=== PATIENT | female | born 1965 | race Hispanic/Latino ===

== ENCOUNTER 2017-02-08 12:06 | Day surgery (SDC) | payer MEDICARE, OTHER ==
[2017-02-05 12:10] VITALS: BMI 29.6
[2017-02-08 12:32] LABS: BASO # 0.03 K/mm3 (0.0-2.0); BASO % 0.5 % (0.0-3.0); EOS # 0.1 (0.0-0.7); EOS % 1.4 % (1.5-5.0); GRAN # 4.57 (1.4-6.5); HEMATOCRIT 42.6 % (36.0-48.0); LYMPH # 1.6 (1.2-3.4); LYMPH % 23.8 % (22.0-35.0); MEAN CELL VOLUME 92.4 fl (80.0-105.0); MEAN CORPUSCULAR HEMOGLOBIN 30.8 pg (25.0-35.0); MEAN CORPUSCULAR HGB CONC 33.3 g/dl (31.0-37.0); MEAN PLATELET VOLUME 10.6 fl (7.0-11.0); MONO # 0.3 (0.1-0.6); MONO % 4.3 % (1.0-6.0); RED CELL DISTRIBUTION WIDTH 14.9 % (11.5-14.5); WHITE BLOOD COUNT 6.5 10^3/ul (4.5-11.0)
[2017-02-08 12:43] VITALS: O2SAT 98
[2017-02-08 12:43] LABS: BLOOD UREA NITROGEN 11 mg/dL (7-21); CALCIUM 8.9 mg/dL (8.4-10.5); CARBON DIOXIDE 21 mmol/L (21-33); CHLORIDE 112 mmol/L (98-107); GFR AFRICAN-AMERICAN > 60; GLUCOSE,RANDOM 108 mg/dL (70-110); POTASSIUM 3.9 mmol/L (3.6-5.0); SODIUM 139 mmol/L (132-148)
[2017-02-08 12:51] LABS: INR 1.04 (0.93-1.08); PARTIAL THROMBOPLASTIN TIME 26.7 Seconds (25.1-36.5)
[2017-02-08] MEDS ORDERED: Midazolam 2 MG/2 ML VIAL ONE ×2 (14:53→15:25)
[2017-02-08] MEDS ORDERED: Oxycodone/Acetaminophen 5/325 mg Tab PO PRN (15:41)
[2017-02-08] MEDS ORDERED: Sodium Chloride 0.45% 1,000 ML IV SCH (15:45)
[2017-02-08 16:57] VITALS: BP 111/71; PULSE 62; RESP 20; TEMP 98
--- NOTE | 2017-02-08 19:34 | US ---
PROCEDURE: Ultrasound-guided right thyroid fine needle aspiration biopsy. CLINICAL HISTORY: Solitary complex 3 cm right thyroid nodule Evaluate for malignancy. PHYSICIAN(S): Moris Calle M.D. TECHNIQUE: The relative risks and indications for the procedure were explained to the patient and consent obtained. The patient was placed supine on the stretcher with the neck extended and preliminary sonography of the thyroid performed. This reveal a 3 cm complex cystic/ nodule in the right thyroid. The remainder of the thyroid parenchyma is homogeneous in echotexture. The neck was prepped and draped in the usual sterile fashion. Conscious sedation and monitoring were provided throughout the procedure by a nurse. 1% Xylocaine was used to anesthetize the skin and soft tissues at the access site. Three passes with a 22-gauge needle were performed under ultrasound guidance for fine needle aspiration of the 3 cm complex nodule in the right thyroid. The slides were reviewed by pathology and deemed adequate. The patient tolerated the procedure well. IMPRESSION: 1. Ultrasound guided fine needle aspiration of a 3- cm complexnodule in the right thyroid.
== END 2017-02-08 17:04 | disposition home or self-care (01) ==
LOC: SDS 12:06
PROVIDERS: ATTEND Radiology Vascular & Interventional Radiology
DX: E04.1 Nontoxic single thyroid nodule (principal); I10 Essential (primary) hypertension; J45.909 Unspecified asthma, uncomplicated; F17.200 Nicotine dependence, unspecified, uncomplicated
CPT/HCPCS: 10022; 36415; 80048; 84703; 85025; 85610; 85730; 88173; 88305; J2250; J2405; J3010; J7030

== ENCOUNTER 2017-12-01 11:27 | Inpatient (IN) | payer MEDICARE, OTHER ==
[2017-12-01] MEDS ORDERED: Sodium Chloride 0.9% 1,000 ML IV STA (11:51)
--- NOTE | 2017-12-01 11:58 | ED PDOC ---
Arrival/HPI - General Chief Complaint: GI Problem Time Seen by Provider: 12/01/17 11:32 Historian: Patient - History of Present Illness Narrative History of Present Illness (Text): 12/01/17 11:54 A 52 year old female, with no significant past medical history, presents to the emergency department with a complaint of 3-4 month duration history of nausea and vomiting every morning. The patient reports that she has experienced weight loss of about 40 lbs. She states that she was seen by her PMD for further evaluation and was advised to come into the emergency department to be admitted. The patient complaint of lightheadedness and dizziness. The patient denies any histry of travel or exposure. The patient is a smoker, non drinker, and marijuana smoker. The patient denies fevers, chills, headache, sore throat, cough, chest pain, shortness of breath, dyspnea on exertion, abdominal pain, diarrhea, neck/back pain, urinary/bowel changes or any other complaint. PMD: Dr. Lopez Time/Duration: Other (3- 4 months) Symptom Course: Unchanged Activities at Onset: Rest, Light Context: Home Past Medical History - Provider Review Nursing Documentation Reviewed: Yes - Infectious Disease Hx of Infectious Diseases: None - Tetanus Immunization Tetanus Immunization: Unknown - Cardiac Hx Cardiac Disorders: No - Pulmonary Hx Respiratory Disorders: Yes Hx Asthma: Yes - Neurological Hx Neurological Disorder: No - HEENT Hx HEENT Disorder: No - Renal Hx Renal Disorder: No - Endocrine/Metabolic Hx Endocrine Disorders: No - Hematological/Oncological Hx Blood Disorders: Yes Hx Anemia: Yes Hx Blood Transfusions: Yes - Integumentary Hx Dermatological Disorder: No - Musculoskeletal/Rheumatological Hx Musculoskeletal Disorders: Yes Hx Back Pain: Yes Other/Comment: DVT - Gastrointestinal Hx Gastrointestinal Disorders: Yes Hx Constipation: Yes - Genitourinary/Gynecological Hx Genitourinary Disorders: No - Psychiatric Hx Psychophysiologic Disorder: Yes Hx Depression: Yes Hx Substance Use: Yes (CANNABIS) - Surgical History Hx Section: Yes - Anesthesia Hx Anesthesia Reactions: No Hx Malignant Hyperthermia: No - Suicidal Assessment Feels Threatened In Home Enviroment: No Family/Social History - Physician Review Nursing Documentation Reviewed: Yes Family/Social History: No Known Family HX Smoking Status: Light Smoker < 10 Cigarettes Daily Hx Alcohol Use: Yes (SOCIALLY) Hx Substance Use: Yes (CANNABIS) Hx Substance Use Treatment: No Allergies/Home Meds Allergies/Adverse Reactions: Allergies No Known Allergies Allergy (Verified 12/01/17 11:31) Home Medications: Home Meds Medication Instructions Recorded Confirmed Gabapentin [Neurontin] 300 mg PO BID 02/05/17 12/01/17 Oxycodone HCl [Oxycontin] 30 mg PO BID 02/05/17 12/01/17 oxyCODONE [oxyCODONE Immediate 10 mg PO TID 12/01/17 12/01/17 Release Tab] Review of Systems - Physician Review All systems were reviewed & negative as marked: Yes - Review of Systems Constitutional: absent: Fevers ENT: absent: Sore Throat Respiratory: absent: SOB, Cough Cardiovascular: absent: Chest Pain, JERONIMO Gastrointestinal: Nausea, Vomiting. absent: Abdominal Pain, Diarrhea, Appetite Changes Genitourinary Female: absent: Urine Output Changes Musculoskeletal: absent: Back Pain, Neck Pain Neurological: Dizziness. absent: Headache Physical Exam Vital Signs Reviewed: Yes Vital Signs Temp Pulse Resp BP Pulse Ox 12/01/17 11:32 98.2 F 93 H 17 119/83 94 L Temperature: Afebrile Blood Pressure: Normal Pulse: Tachycardic Respiratory Rate: Normal Appearance: Positive for: Well-Appearing, Non-Toxic, Comfortable Pain Distress: None Mental Status: Positive for: Alert and Oriented X 3 - Systems Exam Head: Present: Atraumatic, Normocephalic Pupils: Present: PERRL Extroacular Muscles: Present: EOMI Conjunctiva: Present: Normal Mouth: Present: Moist Mucous Membranes Neck: Present: Normal Range of Motion Respiratory/Chest: Present: Clear to Auscultation, Good Air Exchange. No: Respiratory Distress, Accessory Muscle Use Cardiovascular: Present: Regular Rate and Rhythm, Normal S1, S2. No: Murmurs Abdomen: No: Tenderness, Distention, Peritoneal Signs Back: Present: Normal Inspection Upper Extremity: Present: Normal Inspection. No: Cyanosis, Edema Lower Extremity: Present: Normal Inspection. No: Edema Neurological: Present: GCS=15, CN II-XII Intact, Speech Normal Skin: Present: Warm, Dry, Normal Color. No: Rashes Psychiatric: Present: Alert, Oriented x 3, Normal Insight, Normal Concentration Medical Decision Making ED Course and Treatment: 12/01/17 11:59 Impression: A 52 year old female presents to the emergency department for further evaluation of 3-4 month duration nausea and vomiting, dizziness and lightheadedness. Plan: -- EKG -- Chest X-ray -- Labs -- Urinalysis -- Zofran and IV Fluids -- Reassess and disposition Prior Visits: Notes and results from previous visits were reviewed. Progress Notes: 12/01/17 13:56 Discussed with , who will admit and requests consult with and Paola. 12/01/17 13:58 EKG shows normal sinus rhythm rate approximately [address] or T-wave changes. - Lab Interpretations I have reviewed the lab results: Yes - EKG Interpretation Interpreted by ED Physician: Yes Type: 12 lead EKG - Medication Orders Current Medication Orders: Sodium Chloride (Sodium Chloride 0.9%) 1,000 mls @ 1,000 mls/hr IV .Q1H STA Stop: 12/01/17 12:50 Ondansetron HCl (Zofran Inj) 4 mg IVP STAT STA Stop: 12/01/17 11:52 - Scribe Statement The provider has reviewed the documentation as recorded by the Kellieibjames Styles Provider Scribe Attestation: All medical record entries made by the Scribe were at my direction and personally dictated by me. I have reviewed the chart and agree that the record accurately reflects my personal performance of the history, physical exam, medical decision making, and the department course for this patient. I have also personally directed, reviewed, and agree with the discharge instructions and disposition. Disposition/Present on Arrival - Present on Arrival Any Indicators Present on Arrival: No History of DVT/PE: No History of Uncontrolled Diabetes: No Urinary Catheter: No History of Decub. Ulcer: No History Surgical Site Infection Following: None - Disposition Have Diagnosis and Disposition been Completed?: Yes Diagnosis: Weight loss, Nausea and vomiting Disposition: HOSPITALIZED Disposition Time: 13:57 Patient Plan: Observation Patient Problems: Current Active Problems Problem Status Onset Nausea and vomiting Acute Weight loss Acute Condition: GOOD Forms: [facility] (Macedonian)
[2017-12-01 12:26] LABS: HCG,QUALITATIVE URINE NEGATIVE (NEGATIVE)
[2017-12-01 12:27] LABS: PH,URINE 6.5 (4.7-8.0); URINE APPEARANCE CLOUDY (CLEAR); URINE BILIRUBIN SMALL (NEGATIVE); URINE BLOOD TRACE-INTACT (NEGATIVE); URINE COLOR LIGHT BROWN (YELLOW); URINE GLUCOSE (UA) NEGATIVE (NEGATIVE); URINE LEUKOCYTE ESTERASE NEGATIVE Leu/uL (NEGATIVE); URINE PROTEIN 30 mg/dL (<30 mg/dL)
[2017-12-01 12:28] LABS: URINE BACTERIA LARGE (NEG); URINE EPITHELIAL CELLS MANY /hpf (0-5); URINE WBC 0 - 2 /hpf (0-6)
[2017-12-01 12:47] LABS: BASO # 0.06 K/mm3 (0.0-2.0); BASO % 0.7 % (0.0-3.0); EOS # 0.2 (0.0-0.7); EOS % 2.6 % (1.5-5.0); GRAN # 5.6 (1.4-6.5); GRAN % 63.9 % (50.0-68.0); HEMOGLOBIN 14.2 g/dL (12.0-16.0); LYMPH # 2.4 (1.2-3.4); LYMPH % 27.7 % (22.0-35.0); MEAN CORPUSCULAR HEMOGLOBIN 30.1 pg (25.0-35.0); MEAN CORPUSCULAR HGB CONC 33.4 g/dl (31.0-37.0); MEAN PLATELET VOLUME 10.2 fl (7.0-11.0); MONO # 0.5 (0.1-0.6); MONO % 5.1 % (1.0-6.0); RBC 4.72 10^6/uL (3.5-6.1); RED CELL DISTRIBUTION WIDTH 14.3 % (11.5-14.5); WHITE BLOOD COUNT 8.8 10^3/ul (4.5-11.0)
[2017-12-01 12:52] LABS: ALB/GLOB RATIO 1.4 (1.1-1.8); ALBUMIN 4.2 g/dL (3.0-4.8); ALT/SGPT 25 U/L (7-56); AST/SGOT 32 U/L (14-36); BLOOD UREA NITROGEN 13 mg/dL (7-21); CALCIUM 9.1 mg/dL (8.4-10.5); GFR NON-AFRICAN AMERICAN > 60; LIPASE 87 U/L (23-300)
[2017-12-01] MEDS: Sodium Chloride 0.9% 1,000 ML IV SCH (20:08)
[2017-12-01] MEDS ORDERED: Albuterol-Ipratrop 3 mg / 0.5 (3 ml) UD IH PRN (20:21)
[2017-12-01] MEDS ORDERED: oxyCODONE 10 mg ER Tab (oxyCONTIN) PO STA (20:31)
--- NOTE | 2017-12-01 22:10 | CON ---
DATE: 12/01/2017 PULMONARY CONSULTATION REFERRING PHYSICIAN: Dr. Lopez REASON FOR CONSULTATION: Chronic lung disease, recurrent nausea, vomiting, losing weight. HISTORY OF PRESENT ILLNESS: This is a 52-year-old female known to me for few years ago with history of major depression, insomnia, chronic lung disease, history of L2-L3 laminectomy and fusion end up with DVT, requiring anticoagulation. She has a migraine headache, usually use marijuana for it. Also opiate use because of neck and low back pain. Seen by Dr. Lopez, claims loss 30-40 pounds recently, gets nausea and vomiting right after eating and throws up. Presently lying in the bed comfortably. PAST MEDICAL HISTORY: As per history of present illness. ALLERGIES: NONE KNOWN. SOCIAL HISTORY: Active smoker. Denies any alcohol use. Also use marijuana. FAMILY HISTORY: No significant cardiopulmonary disease reported. MEDICATIONS: At present, she is on gabapentin 300 mg twice a day, Nicoderm patch daily, oxycodone 30 mg twice a day, Protonix 40 mg daily, IV fluid normal saline 100 mL/hour, Zofran p.r.n. basis. REVIEW OF SYSTEMS: History of migraine headache. No rhinitis. No postnasal drip. Short of breath, nausea and vomiting. No abdominal pain. No dysuria. No constipation. No leg pain or leg swelling. Has a chronic low back pain. Also has a cervical area pain. PHYSICAL EXAMINATION: VITAL SIGNS: Temperature is 98, heart rate 65, respiratory rate is 18, blood pressure 112/78, pulse ox 97% on room air. HEENT: Moist mucous membranes. No ulcer or thrush noted. NECK: Supple. No JVD. LUNGS: Have fair airflow with few rhonchi. HEART: S1 and S2. ABDOMEN: Soft, nontender, no organomegaly. EXTREMITIES: No edema. NEUROLOGIC: Awake and alert, follows simple commands. LABORATORY DATA: Shows hemoglobin 14.2, hematocrit 42.2, WBC 8.8, platelet is 176. Sodium 139, potassium 4.6, chloride 105, bicarbonate 26, BUN 12, creatinine 0.7, glucose 85, calcium is 9.1, total bili 0.3, AST 32, ALT 25, alk phos is 56, magnesium 1.8. Albumin is 4.2. Urinalysis shows wbc's 0-2. Beta hCG is negative. IMPRESSION AND PLAN: Recurrent nausea and vomiting with weight loss, chronic obstructive lung disease, history of migraine headache. He had a history of L2-L3 laminectomy with fusion in the remote past with chronic pain syndrome, opiate dependence, history of deep venous thrombosis postoperatively in 2012, chronic lung disease, active smoker, depression, history of insomnia. The patient is asked to stop smoking. May give her Nicoderm patch 7 mg. We will get CT of the abdomen and pelvis with IV and p.o. contrast. May also need esophagogram. We will add Reglan for a short period of time. Could have gastroparesis from opiates. The patient is asked to stop smoking. Gastric and deep venous thrombosis prophylaxis. Thank you and we will follow with you. Eliazar Castle MD
[2017-12-02 01:22] VITALS: BMI 27.3
--- NOTE | 2017-12-02 02:28 | HP ---
The patient was seen and examined on the bedside in the ER in 92. CHIEF COMPLAINT: Nausea, vomiting. HISTORY OF PRESENT ILLNESS: Ms. Alisha Link, 52-year-old female with no significant past medical history. Came to the emergency department with complaining of 3-4 months' duration of history of nausea and vomiting every morning. The patient reports that she experienced weight loss of 40 pounds. Actually, she came in my office for evaluation and I gave her Zofran and Nexium and I told her if medicine will not work, go to emergency room. The patient is complaining of lightheadedness, dizziness. The patient denies any history of travel or exposure. The patient is actively heavy smoker, nondrinker and marijuana smoker. The patient denies fever, chills, headache, sore throat, fever. No neck pain. No back pain. No urinary changes. PAST MEDICAL HISTORY: Asthma, anemia, back pain, constipation, depression, using cannabis, history of section. FAMILY HISTORY: Father and mother, noncontributory. HABITS: Heavy smoker. Alcohol socially. Substance abuse, cannabis. ALLERGIES: THE PATIENT IS NOT ALLERGIC WITH ANY MEDICATIONS. HOME MEDICATIONS: Neurontin, oxycodone, OxyContin, Zofran, Nexium. REVIEW OF SYSTEMS: The patient is looking comfortable, but still nauseous and vomiting. Cannot tolerate food. No shortness of breath or coughing. No chest pain. No urinary changes. No back pain. No leg pain. No headache. PHYSICAL EXAMINATION: VITAL SIGNS: Temperature 98.2, pulse 93, respiratory rate 17, blood pressure 170/93. HEENT: Head normocephalic, atraumatic. Eyes PERRLA. Extraocular muscles intact. Conjunctivae clear. Nose patent. Mucous membrane moist. NECK: Supple. No carotid bruit. No JVD or thyromegaly. CHEST: Bilaterally symmetrical. HEART: S1 and S2 positive. LUNGS: Clear to auscultation. ABDOMEN: Soft. Bowel sounds positive. No organomegaly. EXTREMITIES: No edema. No cyanosis. NEUROLOGICAL: The patient is awake and alert. Moving all 4 extremities. No focal deficits. LABORATORY DATA: White blood cells 8.8, hemoglobin 14.2, hematocrit 42.5, platelets 176. Sodium 139, potassium 4.6, BUN 13, creatinine 0.7, glucose 85. ASSESSMENT AND PLAN: MS. Alisha Link, a 52-year-old female with history of back pain, herniated disk, getting pain medication from Pain Management, history of asthma, back pain, constipation, cannabinoids use, is having constant nausea and vomiting for a couple of months and lost 40 pounds. Failed outpatient treatment for nausea, vomiting. Admitted the patient and GI consult called. Lung consult we will call. Repeat labs. We will follow up. Scarlet Lopez MD
[2017-12-02 08:32] LABS: HEMOGLOBIN 11.3 g/dL (12.0-16.0); MEAN CORPUSCULAR HEMOGLOBIN 29.1 pg (25.0-35.0); MEAN PLATELET VOLUME 10.4 fl (7.0-11.0); RBC 3.88 10^6/uL (3.5-6.1); RED CELL DISTRIBUTION WIDTH 14.6 % (11.5-14.5); WHITE BLOOD COUNT 5.4 10^3/ul (4.5-11.0)
[2017-12-02 08:45] LABS: BLOOD UREA NITROGEN 12 mg/dL (7-21); CALCIUM 8.1 mg/dL (8.4-10.5); GFR NON-AFRICAN AMERICAN > 60; HDL CHOLESTEROL 38 mg/dL (29-60)
[2017-12-02 08:55] LABS: IRON 152 ug/dL (45-180); LDL CHOLESTEROL 53 mg/dL (0-129)
--- NOTE | 2017-12-02 09:03 | CARD ---
APPROVED REPORT Date of service: 12/01/2017 EKG Measurement Heart [id number] <Conclusion> Normal sinus rhythm Normal ECG No change
[2017-12-02 09:05] LABS: % IRON SATURATION 58 % (20-55); TOTAL IRON BINDING CAPACITY 263 ug/dL (265-497)
[2017-12-02] MEDS ORDERED: Enoxaparin 30 mg Syringe SC SCH (10:00)
[2017-12-02] MEDS: Enoxaparin 40 mg Syringe SC SCH (10:18)
[2017-12-02] MEDS: oxyCODONE 10 mg ER Tab (oxyCONTIN) PO SCH ×2 (10:19→18:05)
[2017-12-02] MEDS ORDERED: Iohexol 350 MG/100 ML VIAL ONE (10:23)
[2017-12-02] MEDS ORDERED: Iohexol 240 (50 ml) ONE (10:23)
--- NOTE | 2017-12-02 14:43 | CT ---
Date of service: 12/02/2017 PROCEDURE: CT Abdomen and Pelvis with contrast HISTORY: recurrent nausea and vomiting COMPARISON: None. TECHNIQUE: Intravenous contrast dose: 100 cc Omnipaque 350 Radiation dose: Total exam DLP = 04354 mGy-cm. This CT exam was performed using one or more of the following dose reduction techniques: Automated exposure control, adjustment of the mA and/or kV according to patient size, and/or use of iterative reconstruction technique. FINDINGS: LOWER THORAX: Unremarkable. LIVER: Unremarkable. No gross lesion or ductal dilatation. GALLBLADDER AND BILE DUCTS: Unremarkable. PANCREAS: Unremarkable. No gross lesion or ductal dilatation. SPLEEN: Unremarkable. ADRENALS: Unremarkable. No mass. KIDNEYS AND URETERS: Unremarkable. No hydronephrosis. No solid mass. VASCULATURE: Unremarkable. No aortic aneurysm. BOWEL: Diverticulosis without an acute inflammatory component or other associated pathologic process. APPENDIX: Normal appendix. PERITONEUM: Unremarkable. No free fluid. No free air. LYMPH NODES: Unremarkable. No enlarged lymph nodes. BLADDER: Unremarkable. REPRODUCTIVE: Unremarkable. BONES: No acute fracture. Postoperative changes lower lumbar spine and upper sacrum Compression deformity L3. OTHER FINDINGS: None. IMPRESSION: No acute findings related to/accounting for the clinical presentation. Additional benign and/or incidental findings described above.
--- NOTE | 2017-12-02 15:27 | CP.PCM.CON ---
Addendum entered and electronically signed by Jameson George DO 12/02/17 15:40: Transferrin >50 in women should be tested for HFE Original Note: <Jameson George - Last Filed: 12/02/17 15:29> History of Present Illness - History of Present Illness History of Present Illness: PGY5 GI Follow-up Alisha Link is a 52F w/ no significant med hx presents to the ER for weightloss, nausea and vomiting. Pt states that the onset has been sudden and onset was 3 months prior. Pt states that she has intermittent non-bloody emesis, commonly after meals. Denies any abd pain, rectal bleeding. She notes that she often feel the food becoming stuck near her sternal notch, but has never been to the ER for food impaction. Pt denies any difficult with liquids > solids. Denies any previous colonoscopy and EGD. Denies any intolerance to certain foods or diarrhea. Denies any episodes of juandice.Lost 40lbs over 3 months, as per pt. PMHx: thyroid cyst? Surgical hx: disk herniation repair Endo hx: none Social hx:denies any smoking, etoh, or illicit drugs ROS: 12 point ROS conducted, neg other than above Past Patient History - Infectious Disease Hx of Infectious Diseases: None - Tetanus Immunizations Tetanus Immunization: Unknown - Past Social History Smoking Status: Light Smoker < 10 Cigarettes Daily - CARDIAC Hx Cardiac Disorders: No - PULMONARY Hx Asthma: Yes Other/Comment: smokes cigarettes/marijuana - NEUROLOGICAL Hx Neurological Disorder: No - HEENT Hx HEENT Problems: No - RENAL Hx Chronic Kidney Disease: No - ENDOCRINE/METABOLIC Hx Endocrine Disorders: No - HEMATOLOGICAL/ONCOLOGICAL Hx Anemia: Yes - INTEGUMENTARY Hx Dermatological Problems: No - MUSCULOSKELETAL/RHEUMATOLOGICAL Hx Falls: Yes - GASTROINTESTINAL Hx Gastrointestinal Disorders: Yes - GENITOURINARY/GYNECOLOGICAL Hx Genitourinary Disorders: No - PSYCHIATRIC Hx Depression: Yes - SURGICAL HISTORY Hx Surgeries: Yes Other/Comment: back surgery. tubal ligation. c/s - ANESTHESIA Hx Anesthesia Reactions: No Hx Malignant Hyperthermia: No Meds Allergies/Adverse Reactions: Allergies Allergy/AdvReac Type Severity Reaction Status Date / Time No Known Allergies Allergy Verified 12/01/17 11:31 - Medications Medications: Current Medications Enoxaparin Sodium (Lovenox) 40 mg SC DAILY [facility]; Protocol Last Admin: 12/02/17 10:18 Dose: 40 mg Gabapentin (Neurontin) 300 mg PO BID [facility]; Protocol Last Admin: 12/02/17 10:19 Dose: 300 mg Sodium Chloride (Sodium Chloride 0.9%) 1,000 mls @ 100 mls/hr IV .Q10H [facility] Last Admin: 12/01/17 20:08 Dose: 100 mls/hr Nicotine (Nicoderm Cq) 1 patch TD DAILY [facility] Last Admin: 12/02/17 10:17 Dose: 1 patch Ondansetron HCl (Zofran Inj) 4 mg IVP Q6 PRN PRN Reason: Nausea/Vomiting Last Admin: 12/02/17 02:35 Dose: 4 mg Oxycodone HCl (Oxycontin Extended Release Tab) 30 mg PO BID [facility] Last Admin: 12/02/17 10:19 Dose: 30 mg Pantoprazole Sodium (Protonix Inj) 40 mg IVP DAILY [facility] Last Admin: 12/02/17 10:19 Dose: 40 mg Physical Exam - Constitutional Appears: Well, No Acute Distress - Head Exam Head Exam: ATRAUMATIC, NORMOCEPHALIC - Eye Exam Eye Exam: Normal appearance Pupil Exam: NORMAL ACCOMODATION - ENT Exam ENT Exam: Mucous Membranes Moist, Normal Exam - Neck Exam Neck exam: Positive for: Normal Inspection - Respiratory Exam Respiratory Exam: Clear to Auscultation Bilateral, NORMAL BREATHING PATTERN. absent: Rales, Rhonchi, Wheezes, Respiratory Distress - Cardiovascular Exam Cardiovascular Exam: REGULAR RHYTHM, +S1, +S2 - GI/Abdominal Exam GI & Abdominal Exam: Normal Bowel Sounds, Soft. absent: Firm, Guarding, Organomegaly, Pulsatile Mass, Rebound, Rigid - Extremities Exam Extremities exam: Negative for: joint swelling, pedal edema - Neurological Exam Neurological exam: Alert, Oriented x3 - Psychiatric Exam Psychiatric exam: Normal Affect, Normal Mood - Skin Skin Exam: Dry, Intact, Normal Color, Warm Results - Vital Signs Recent Vital Signs: Last Vital Signs Temp 97.7 F 12/02/17 14:00 Pulse 53 L 12/02/17 14:00 Resp 18 12/02/17 14:00 BP 96/50 L 12/02/17 14:00 Pulse Ox 97 12/02/17 14:00 - Labs Result Diagrams: 12/02/17 07:00 12/02/17 07:00 Labs: Laboratory Results - last 24 hr 12/02/17 12/02/17 12/02/17 07:00 07:00 07:00 WBC RBC Hgb Hct MCV MCH MCHC RDW Plt Count MPV Sodium 138 Potassium 3.8 Chloride 110 H Carbon Dioxide 22 Anion Gap 9 L BUN 12 Creatinine 0.6 L Est GFR ( Amer) > 60 Est GFR (Non-Af Amer) > 60 Random Glucose 59 L Hemoglobin A1c 5.3 Calcium 8.1 L Iron 152 TIBC 263 L % Saturation 58 H Triglycerides 95 Cholesterol 113 L LDL Cholesterol Direct 53 HDL Cholesterol 38 TSH 3rd Generation 12/02/17 12/02/17 07:00 07:00 WBC 5.4 D RBC 3.88 Hgb 11.3 L D Hct 35.3 L MCV 91.0 MCH 29.1 MCHC 32.0 RDW 14.6 H Plt Count 139 MPV 10.4 Sodium Potassium Chloride Carbon Dioxide Anion Gap BUN Creatinine Est GFR ( Amer) Est GFR (Non-Af Amer) Random Glucose Hemoglobin A1c Calcium Iron TIBC % Saturation Triglycerides Cholesterol LDL Cholesterol Direct HDL Cholesterol TSH 3rd Generation 1.16 Assessment & Plan - Assessment and Plan (Free Text) Assessment: Alisha Link is a 52F w/ no sig hx who presents to the ER for weightloss, nausea, and vomiting Weightloss Decreased appetite Recurrent nausea and vomiting Plan: -diet as tolerated -CT abd pelv reviewed; no pancreas abnormality or other sig findings -recommend celiac serology -would benefit from EGD and colonscopy -consider CT chest -start miralax, if continues to have constipation -continue IV fluids -continue PPI daily Seen and d/w Dr. Guevara <Jean Pierre Guevara V - Last Filed: 12/02/17 23:48> Meds - Medications Medications: Current Medications Enoxaparin Sodium (Lovenox) 40 mg SC DAILY [facility]; Protocol Last Admin: 12/02/17 10:18 Dose: 40 mg Gabapentin (Neurontin) 300 mg PO BID [facility]; Protocol Last Admin: 12/02/17 18:05 Dose: 300 mg Sodium Chloride (Sodium Chloride 0.9%) 1,000 mls @ 100 mls/hr IV .Q10H [facility] Last Admin: 12/02/17 18:01 Dose: 100 mls/hr Nicotine (Nicoderm Cq) 1 patch TD DAILY [facility] Last Admin: 12/02/17 10:17 Dose: 1 patch Ondansetron HCl (Zofran Inj) 4 mg IVP Q6 PRN PRN Reason: Nausea/Vomiting Last Admin: 12/02/17 19:59 Dose: 4 mg Oxycodone HCl (Oxycontin Extended Release Tab) 30 mg PO BID [facility] Last Admin: 12/02/17 18:05 Dose: 30 mg Pantoprazole Sodium (Protonix Inj) 40 mg IVP DAILY [facility] Last Admin: 12/02/17 10:19 Dose: 40 mg Results - Vital Signs Recent Vital Signs: Last Vital Signs Temp 97.7 F 12/02/17 14:00 Pulse 53 L 12/02/17 14:00 Resp 18 12/02/17 14:00 BP 96/50 L 12/02/17 14:00 Pulse Ox 97 12/02/17 14:00 - Labs Result Diagrams: 12/02/17 07:00 12/02/17 07:00 Labs: Laboratory Results - last 24 hr 12/02/17 12/02/17 12/02/17 07:00 07:00 07:00 WBC RBC Hgb Hct MCV MCH MCHC RDW Plt Count MPV Sodium 138 Potassium 3.8 Chloride 110 H Carbon Dioxide 22 Anion Gap 9 L BUN 12 Creatinine 0.6 L Est GFR ( Amer) > 60 Est GFR (Non-Af Amer) > 60 POC Glucose (mg/dL) Random Glucose 59 L Hemoglobin A1c 5.3 Calcium 8.1 L Iron 152 TIBC 263 L % Saturation 58 H Triglycerides 95 Cholesterol 113 L LDL Cholesterol Direct 53 HDL Cholesterol 38 Vitamin B12 265 Folate 9.0 TSH 3rd Generation 12/02/17 12/02/17 12/02/17 07:00 07:00 19:32 WBC 5.4 D RBC 3.88 Hgb 11.3 L D Hct 35.3 L MCV 91.0 MCH 29.1 MCHC 32.0 RDW 14.6 H Plt Count 139 MPV 10.4 Sodium Potassium Chloride Carbon Dioxide Anion Gap BUN Creatinine Est GFR ( Amer) Est GFR (Non-Af Amer) POC Glucose (mg/dL) 80 Random Glucose Hemoglobin A1c Calcium Iron TIBC % Saturation Triglycerides Cholesterol LDL Cholesterol Direct HDL Cholesterol Vitamin B12 Folate TSH 3rd Generation 1.16 12/02/17 21:15 WBC RBC Hgb Hct MCV MCH MCHC RDW Plt Count MPV Sodium Potassium Chloride Carbon Dioxide Anion Gap BUN Creatinine Est GFR ( Amer) Est GFR (Non-Af Amer) POC Glucose (mg/dL) 76 Random Glucose Hemoglobin A1c Calcium Iron TIBC % Saturation Triglycerides Cholesterol LDL Cholesterol Direct HDL Cholesterol Vitamin B12 Folate TSH 3rd Generation Attending/Attestation - Attestation I have personally seen and examined this patient.: Yes I have fully participated in the care of the patient.: Yes I have reviewed all pertinent clinical information: Yes Notes (Text): This is an addendum to GI consult report dictated by the GI Fellow.The patient was seen and examined earlier. Medical records, lab studies, imagings were reviewed. Last 24 hours events reviewed. Agreed with the above treatment plan as outlined in GI Fellow 's notes with the addition of the following This patient has multiple complaints significant weight lose of 40 pounds since April After dental procedure after that could not eat certain food Patient has also complain of food coming up and sensation of getting stuck sometimes History of goiter History of thyroid breanna and status post biopsy in the past -- benign Patient never had EGD or colonoscopy Would request CT of abdomen and pelvis with PO and iv contrast 12/02/17 23:44
[2017-12-02] MEDS: Sodium Chloride 0.9% 1,000 ML IV SCH (18:01)
--- NOTE | 2017-12-02 18:57 | PN ---
DATE: 12/02/2017 PULMONARY PROGRESS NOTE REFERRING PHYSICIAN: Scarlet Lopez MD SUBJECTIVE: She is sitting side of the bed. Night was unremarkable. No vomiting. Did tolerate clear liquid diet well. No nausea at the present time. No chest pain. No dysuria. No leg pain, no leg swelling. PHYSICAL EXAMINATION GENERAL: In no acute distress. VITAL SIGNS: Temperature is 98, heart rate is 66, blood pressure is 110/57, respiratory rate is 20, pulse ox 97% on room air. HEENT: Moist mucous membrane. No ulcer or thrush. NECK: Supple. No JVD. LUNGS: Have fair airflow with rhonchi. HEART: S1 and S2. ABDOMEN: Soft, nontender, no organomegaly. EXTREMITIES: No edema. NEUROLOGIC: Awake and alert, follows simple commands. MEDICATIONS: She is on Lovenox 40 mg daily, gabapentin 300 mg twice a day, Nicoderm patch daily, oxycodone extended release 30 mg twice a day, Protonix 40 mg daily, IV fluid normal saline 100 mL per hour, Zofran on p.r.n. basis. LABORATORY DATA: Shows hemoglobin 11.3, hematocrit 35.3, WBC 5.4, platelet is 139. Sodium 138, potassium 3.8, chloride 110, bicarbonate 22, BUN 12, creatinine 0.6, glucose is 59. Hemoglobin A1c 5.3. Iron is 152. Cholesterol 113. Lipase is 87. B12 and folate is pending. TSH 1.16. IMPRESSION AND PLAN: Recurrent nausea and vomiting with weight loss, chronic obstructive lung disease, smoker, history of migraine headache, history of L2-L3 laminectomy with fusion in the remote past, chronic pain syndrome, opioids dependent, history of deep venous thrombosis in the past after laminectomy, chronic lung disease, insomnia, depression. Pulmonary point of view, doing okay. Tolerating clear liquid diet well. Waiting for CT of the abdomen and pelvis. Also, waiting for esophagogram. We will keep Reglan on hold for now. GI evaluation. The patient has to stop smoking. Thank you and we will follow with you. Eliazar Castle MD
--- NOTE | 2017-12-02 22:37 | PN ---
DATE: 12/02/2017 SUBJECTIVE: The patient was seen and examined on the bedside on 12/02/2017, looking comfortable, hungry, waiting for the CAT scan. Night was unremarkable. Tolerated clear liquid diet very well. No more nausea or vomiting. No chest pain. No headache. No dizziness. PHYSICAL EXAMINATION: VITAL SIGNS: Temperature 98, heart rate 66, blood pressure 110/57, respiratory rate 20, pulse oximetry 97% on room air. HEENT: Head normocephalic, atraumatic. Eyes PERRLA. Extraocular muscles intact. Conjunctivae clear. Nose patent. Mucous membrane moist. NECK: Supple. No carotid bruit. No JVD or thyromegaly. CHEST: Bilaterally symmetrical. HEART: S1 and S2 positive. LUNGS: Have fair airflow with rhonchi. ABDOMEN: Soft, nontender. No organomegaly. EXTREMITIES: No edema. No cyanosis. NEUROLOGICAL: The patient is awake and alert. Follows simple commands. MEDICATIONS: Lovenox, gabapentin, Nicoderm, oxycodone, Protonix, IV fluid, Zofran. LABORATORY DATA: Hemoglobin 11.3, hematocrit 35.3, white blood cells 5.4, platelets 139. Sodium 138, BUN 12, creatinine 0.6, glucose 59, hemoglobin A1c 5.3, lipase 87. ASSESSMENT AND PLAN: Ms. Alisha Link, 52-year-old female with recurrent nausea, vomiting with weight loss 40 pounds in a couple of months, chronic obstructive lung disease, active smoker and heavy smoker, history of migraine headache, L2-L3 laminectomy with fusion in the remote past, chronic pain syndrome, getting opiates from Pain Management, history of deep vein thrombosis in the past after laminectomy, chronic insomnia. Tolerating clear liquid diet. Waiting for CT of the abdomen and pelvis and esophagogram. We will keep Reglan on hold for now. GI evaluation. I appreciated Dr. Castle's input. I reviewed CAT scan of the abdomen and pelvis. History of decreased appetite, weight loss, recurrent nausea or vomiting. GI recommending celiac serology. Would benefit from EGD or colonoscopy. Consider CT of chest. Starting MiraLax if continued to have constipation. Continue IV fluid, PPI. We will follow up. Scarlet Lopez MD [facility] # [id number]
[2017-12-03 08:26] LABS: BASO # 0.04 K/mm3 (0.0-2.0); BASO % 0.8 % (0.0-3.0); EOS # 0.1 (0.0-0.7); EOS % 2.5 % (1.5-5.0); GRAN # 2.44 (1.4-6.5); GRAN % 47.6 % (50.0-68.0); HEMOGLOBIN 11.6 g/dL (12.0-16.0); LYMPH # 2.2 (1.2-3.4); LYMPH % 41.9 % (22.0-35.0); MEAN CORPUSCULAR HEMOGLOBIN 29.1 pg (25.0-35.0); MONO # 0.4 (0.1-0.6); MONO % 7.2 % (1.0-6.0); RBC 3.99 10^6/uL (3.5-6.1); RED CELL DISTRIBUTION WIDTH 14.4 % (11.5-14.5); WHITE BLOOD COUNT 5.1 10^3/ul (4.5-11.0)
[2017-12-03 08:40] LABS: ALB/GLOB RATIO 1.3 (1.1-1.8); ALBUMIN 3.2 g/dL (3.0-4.8); ALT/SGPT 29 U/L (7-56); AST/SGOT 26 U/L (14-36); BLOOD UREA NITROGEN 6 mg/dL (7-21); CALCIUM 8.5 mg/dL (8.4-10.5); GFR NON-AFRICAN AMERICAN > 60
--- NOTE | 2017-12-03 09:39 | CT ---
Date of service: 12/03/2017 PROCEDURE: CT Chest without contrast HISTORY: heavy smoker COMPARISON: 12/02/2017 TECHNIQUE: Contiguous axial images were obtained through the chest without intravenous contrast enhancement. Sagittal and coronal reconstructions were performed. Radiation dose (DLP): 261 mGy-cm. This CT exam was performed using one or more of the following dose reduction techniques: Automated exposure control, adjustment of the mA and/or kV according to patient size, and/or use of iterative reconstruction technique. FINDINGS: LUNGS: There is a density in the left costophrenic angle that most likely represents atelectasis. This was not present on the abdominal CT from 12/02/2017. There is mild peribronchial thickening consistent with bronchitis MEDIASTINUM: Unremarkable thoracic aorta. No aneurysm. Normal sized heart. Main pulmonary artery unremarkable. No vascular congestion. No lymphadenopathy. PLEURA: No pleural fluid. No pneumothorax. BONES: No fracture. No destructive lesion. UPPER ABDOMEN: Grossly unremarkable. OTHER FINDINGS: None IMPRESSION: There is a density in the left costophrenic angle that most likely represents atelectasis. There is mild peribronchial thickening consistent with bronchitis
[2017-12-03] MEDS ORDERED: Barium Sulfate for Susp 98% w/w 340g Bottle ONE (09:56)
--- NOTE | 2017-12-03 10:10 | CP.PCM.PN ---
<Maxi Mcgrath - Last Filed: 12/03/17 14:43> Subjective - Date & Time of Evaluation Date of Evaluation: 12/03/17 Time of Evaluation: 10:04 - Subjective Subjective: Arvin Mcgrath PGY2 IM Resident - GI Progress Note Patient seen and examined this AM. No acute events overnight. Patient complains of nausea secondary to being on clear liquid diet and without substance. Continues to express some catching sensation with swallowing. She denies diarrhea, constipation. Objective - Vital Signs/Intake and Output Vital Signs (last 24 hours): Temp Pulse Resp BP Pulse Ox 98.1 F 57 L 20 96/55 L 99 12/03/17 06:00 12/03/17 06:00 12/03/17 06:00 12/03/17 06:00 12/03/17 06:00 Intake and Output: 12/03/17 12/03/17 06:59 18:59 Intake Total 180 Balance 180 - Medications Medications: Current Medications Enoxaparin Sodium (Lovenox) 40 mg SC DAILY [facility]; Protocol Last Admin: 12/02/17 10:18 Dose: 40 mg Gabapentin (Neurontin) 300 mg PO BID [facility]; Protocol Last Admin: 12/02/17 18:05 Dose: 300 mg Sodium Chloride (Sodium Chloride 0.9%) 1,000 mls @ 100 mls/hr IV .Q10H [facility] Last Admin: 12/02/17 18:01 Dose: 100 mls/hr Ibuprofen (Motrin Tab) 600 mg PO BID PRN PRN Reason: Pain, severe (8-10) Nicotine (Nicoderm Cq) 1 patch TD DAILY [facility] Last Admin: 12/02/17 10:17 Dose: 1 patch Ondansetron HCl (Zofran Inj) 4 mg IVP Q6 PRN PRN Reason: Nausea/Vomiting Last Admin: 12/02/17 19:59 Dose: 4 mg Oxycodone HCl (Oxycontin Extended Release Tab) 30 mg PO BID [facility] Last Admin: 12/02/17 18:05 Dose: 30 mg Pantoprazole Sodium (Protonix Inj) 40 mg IVP DAILY [facility] Last Admin: 12/02/17 10:19 Dose: 40 mg - Labs Labs: 12/03/17 07:59 12/03/17 07:59 - Head Exam Head Exam: ATRAUMATIC, NORMAL INSPECTION, NORMOCEPHALIC - Eye Exam Eye Exam: EOMI, PERRL - ENT Exam ENT Exam: Mucous Membranes Moist - Neck Exam Neck Exam: Full ROM - Respiratory Exam Respiratory Exam: Clear to Ausculation Bilateral, NORMAL BREATHING PATTERN - Cardiovascular Exam Cardiovascular Exam: REGULAR RHYTHM, +S1, +S2 - GI/Abdominal Exam GI & Abdominal Exam: Soft, Normal Bowel Sounds. absent: Firm, Guarding, Rigid - Extremities Exam Extremities Exam: Full ROM. absent: Calf Tenderness - Neurological Exam Neurological Exam: Alert, Awake, Normal Gait, Oriented x3 Neuro motor strength exam: Left Upper Extremity: 5, Right Upper Extremity: 5, Left Lower Extremity: 5, Right Lower Extremity: 5 - Psychiatric Exam Psychiatric exam: Normal Affect, Normal Mood - Skin Skin Exam: Dry, Intact Assessment and Plan - Assessment and Plan (Free Text) Assessment: 52 year old female with no significant past medical history who presented with danisha loss, nausea, and vomiting Plan: Weight loss N/V recurrent - f/u celiac serology - Continue IVF, PPI, miralax - recommending EGD and colonoscopy - Consider Chest CT - Further recommendations per Dr. Guevara <Jean Pierre Guevara V - Last Filed: 12/03/17 23:10> Objective - Vital Signs/Intake and Output Vital Signs (last 24 hours): Temp Pulse Resp BP Pulse Ox 98 F 74 20 126/43 L 97 12/03/17 14:00 12/03/17 14:00 12/03/17 14:00 12/03/17 14:00 12/03/17 14:00 Intake and Output: 12/03/17 12/04/17 18:59 06:59 Intake Total 600 Balance 600 - Medications Medications: Current Medications Acetaminophen (Tylenol 325mg Tab) 650 mg PO Q4H PRN PRN Reason: Pain, Mild (1-3) Enoxaparin Sodium (Lovenox) 40 mg SC DAILY [facility]; Protocol Last Admin: 12/03/17 10:56 Dose: 40 mg Gabapentin (Neurontin) 300 mg PO BID [facility]; Protocol Last Admin: 12/03/17 18:55 Dose: 300 mg Sodium Chloride (Sodium Chloride 0.9%) 1,000 mls @ 100 mls/hr IV .Q10H [facility] Last Admin: 12/03/17 10:59 Dose: 100 mls/hr Ibuprofen (Motrin Tab) 600 mg PO BID PRN PRN Reason: Pain, severe (8-10) Nicotine (Nicoderm Cq) 1 patch TD DAILY [facility] Last Admin: 12/03/17 10:59 Dose: Not Given Ondansetron HCl (Zofran Inj) 4 mg IVP Q6 PRN PRN Reason: Nausea/Vomiting Last Admin: 12/03/17 21:30 Dose: 4 mg Oxycodone HCl (Oxycontin Extended Release Tab) 30 mg PO BID [facility] Last Admin: 12/03/17 18:55 Dose: 30 mg Pantoprazole Sodium (Protonix Inj) 40 mg IVP DAILY [facility] Last Admin: 12/03/17 10:55 Dose: 40 mg - Labs Labs: 12/03/17 07:59 12/03/17 07:59 Attending/Attestation - Attestation I have personally seen and examined this patient.: Yes I have fully participated in the care of the patient.: Yes I have reviewed all pertinent clinical information, including history, physical exam and plan: Yes Notes (Text): This is an addendum to GI followup report dictated by the Sewer Separation Designer. The patient was seen and evaluated earlier. Medical records, lab studies, imagings were reviewed. Last 24 hours events reviewed. Agreed with the above treatment plan as outlined in Sewer Separation Designer 's notes with the addition of the following Esophagram was reviewed - negative Tolerated soft diet In view of the chronicity of the symptoms in view of worsening Patient has significant weight loss Etiology unclear Patient will be scheduled for EGD in AM to further evaluate abdominal pain 12/03/17 23:07
[2017-12-03] MEDS: Enoxaparin 40 mg Syringe SC SCH (10:56)
[2017-12-03] MEDS: oxyCODONE 10 mg ER Tab (oxyCONTIN) PO SCH ×2 (10:56→18:55)
[2017-12-03] MEDS: Sodium Chloride 0.9% 1,000 ML IV SCH (10:59)
--- NOTE | 2017-12-03 11:13 | RAD ---
Date of service: 12/03/2017 HISTORY: Dysphagia. COMPARISON: None. TECHNIQUE: Single contrast esophagram was performed. FINDINGS: Patient tolerated procedure well. ESOPHAGUS: Esophageal mucosa appeared preserved. No evidence of stricture or mass lesion. HIATAL HERNIA: None demonstrated. GASTROESOPHAGEAL REFLUX: Not demonstrated. OTHER FINDINGS: None. IMPRESSION: Unremarkable esophagram.
--- NOTE | 2017-12-03 12:13 | US ---
Date of service: 12/03/2017 HISTORY: r/o biliary etiology COMPARISON: None. TECHNIQUE: Sonographic evaluation of the abdomen. FINDINGS: LIVER: Measures 16.9 cm. Normal echogenicity of the liver parenchyma. No mass. No intrahepatic bile duct dilatation. GALLBLADDER: No mural thickening. There is pericholecystic fluid. There is no sonographic Salazar sign. There is no evidence of cholelithiasis. This is a nonspecific finding. COMMON BILE DUCT: Measures 7 mm. No stones. No dilatation. PANCREAS: Unremarkable as visualized. No mass. No ductal dilatation. RIGHT KIDNEY: Measures 10.4cm. Normal echogenicity. No calculus, mass, or hydronephrosis. LEFT KIDNEY: Measures 10.6cm. Normal echogenicity. No calculus, mass, or hydronephrosis. SPLEEN: Normal in size and contour. No mass. AORTA: No aneurysmal dilatation. IVC: Unremarkable. OTHER FINDINGS: None. IMPRESSION: Nonspecific pericholecystic fluid without evidence of cholelithiasis. No sonographic Salazar sign. No other significant abnormality. The
--- NOTE | 2017-12-04 01:38 | PN ---
DATE: 12/03/2017 PULMONARY PROGRESS NOTE REFERRING PHYSICIAN: Scarlet Lopez MD. SUBJECTIVE: She is sitting up in a bed, hungry, wants to eat. Went through multiple tests including abdominal CT, chest CT, esophagogram, which is all unremarkable other than small atelectasis the left lung. Denies any nausea or vomiting at present. No leg pain or leg swelling. OBJECTIVE: GENERAL: In no acute distress. VITAL SIGNS: Temp is 98, heart rate is 74, respiratory rate is 20, blood pressure 126/43, pulse ox 97% on room air. HEENT: Moist mucous membrane. No ulcer or thrush noted. NECK: Supple. No JVD. LUNGS: Have a fair airflow with rhonchi. HEART: S1 and S2. ABDOMEN: Soft, nontender, no organomegaly. EXTREMITIES: No edema. NEUROLOGICAL: Awake and alert. Follows simple command. MEDICATIONS: She is on Lovenox 40 mg daily, Motrin 600 mg twice a day p.r.n., gabapentin 300 mg twice a day, Nicoderm patch daily, OxyContin extended release 30 mg twice a day, Protonix 40 mg daily, IV fluid normal saline 100 mL/hour, Tylenol p.r.n., Zofran p.r.n. basis. LABORATORY DATA: Shows hemoglobin 11.6, hematocrit 36.3, WBC 5.1, platelet count is 140. Sodium 139, potassium 4.1, chloride 110, bicarbonate is 25, BUN is 6, creatinine 0.7, glucose is 81. Calcium 8.5, phosphorus 3.8, magnesium 1.9, AST 26, ALT is 29, alk phos is 41, albumin is 3.2. CAT scan of the chest shows some atelectasis, otherwise unremarkable. Abdominal and pelvic x-ray is unremarkable. Esophagogram is unremarkable. IMPRESSION AND PLAN: Admitted with gastroparesis and persistent nausea and vomiting with weight loss, history of chronic lung disease, smoker, migraine headache, history of L2-L3 laminectomy with fusion, chronic pain syndrome, opiates dependent. In the past, had a deep venous thrombosis. Case discussed with Dr. Lopez. Also spoke to nursing staff. Supposed to check with Dr. Guevara if the patient could be fed. From GI nodes, seems like need endoscopy and colonoscopy, which could be done either as outpatient. Pulmonary point of view, she is doing okay. Urged to stop smoking. Continue bronchodilator. May continue nicotine patch for now. Thank you and we will follow with you. Eliazar Castle MD
--- NOTE | 2017-12-04 04:02 | PN ---
DATE: 12/03/2017 The patient is a 52-year-old female. SUBJECTIVE: The patient was seen and examined at the bedside on 12/03/2017, went through many testing. No acute event overnight. The patient is complaining of nausea secondary to being on clear liquid diet without substance. No fever. No chills. No diarrhea. No constipation. No headache. No dizziness. PHYSICAL EXAMINATION: VITAL SIGNS: Temperature 98.1, pulse 57, respiratory rate 20, blood pressure /52, pulse oximetry 99%. HEENT: Head is normocephalic and atraumatic. Eyes; PERRLA. Extraocular muscles are intact. Conjunctivae are clear. Nose patent. NECK: Supple. No carotid bruit. No JVD or thyromegaly. CHEST: Bilaterally symmetrical. HEART: S1 and S2 positive. LUNGS: Clear to auscultation. ABDOMEN: Soft. Bowel sounds are present. No organomegaly. EXTREMITIES: No edema. No cyanosis. NEUROLOGIC: The patient is awake and alert. Moving all 4 extremities. No focal deficits. MEDICATIONS: Lovenox, Neurontin, NS, Motrin, Nicoderm, Zofran, oxycodone, and pantoprazole. LABORATORY DATA: White blood cell is 5.1, hemoglobin 11.6, hematocrit 36.3, and platelets 140. Sodium 139, potassium 4.1, BUN 6, creatinine 0.7, and glucose 79. ASSESSMENT AND PLAN: Ms. Alisha Link is a 52-year-old lady with leukopenia, anemia, hypochloremia, we do not see recent past medical history, came with weight loss 40 pounds, nausea and vomiting. Follow up celiac serology. Continue IV fluids, PPI, MiraLax. Recommending EGD and colonoscopy as per GI. Need patient to go for procedure tomorrow. Consider CT of the chest that was done. History of back pain, history of smoking, smoking marijuana, gastroesophageal reflux disease, dyspepsia, history of depression, back surgery, tubal ligation. Now continue GI and DVT prophylaxes. The patient is getting Neurontin for lumbosacral radiculopathy and nicotine patch, Zofran. Reviewed esophagus x-ray, CAT scan of the chest, abdominal ultrasound, abdominal and pelvis CT. Repeat labs. We will follow up. Scarlet Lopez MD [facility] # [id number]
[2017-12-04] MEDS: Sodium Chloride 0.9% 1,000 ML IV SCH (06:51)
[2017-12-04 07:25] LABS: BASO # 0.02 K/mm3 (0.0-2.0); BASO % 0.4 % (0.0-3.0); EOS # 0.1 (0.0-0.7); EOS % 2.7 % (1.5-5.0); GRAN # 2.37 (1.4-6.5); GRAN % 48.7 % (50.0-68.0); HEMOGLOBIN 11.1 g/dL (12.0-16.0); LYMPH # 2.1 (1.2-3.4); LYMPH % 42.4 % (22.0-35.0); MEAN CELL VOLUME 90.6 fl (80.0-105.0); MEAN CORPUSCULAR HEMOGLOBIN 29.7 pg (25.0-35.0); MEAN CORPUSCULAR HGB CONC 32.7 g/dl (31.0-37.0); MEAN PLATELET VOLUME 10.2 fl (7.0-11.0); MONO # 0.3 (0.1-0.6); MONO % 5.8 % (1.0-6.0); RBC 3.74 10^6/uL (3.5-6.1); RED CELL DISTRIBUTION WIDTH 14.3 % (11.5-14.5); WHITE BLOOD COUNT 4.9 10^3/ul (4.5-11.0)
[2017-12-04 07:42] LABS: ALB/GLOB RATIO 1.2 (1.1-1.8); ALT/SGPT 27 U/L (7-56); AST/SGOT 30 U/L (14-36); BLOOD UREA NITROGEN 5 mg/dL (7-21); CALCIUM 8.2 mg/dL (8.4-10.5); GFR NON-AFRICAN AMERICAN > 60
[2017-12-04] MEDS: oxyCODONE 10 mg ER Tab (oxyCONTIN) PO SCH ×2 (09:04→09:44)
[2017-12-04 11:16] VITALS: TEMP 98.2; O2SAT 95
[2017-12-04] MEDS ORDERED: Lidocaine 1% Inj (20ml) ONE (12:41)
[2017-12-04] MEDS ORDERED: Propofol 10 mg/ml Inj (20 ML) ONE (12:41)
[2017-12-04] MEDS ORDERED: Sodium Chloride 0.9% 1,000 ML IV SCH (13:45)
[2017-12-04 14:02] VITALS: RESP 16
[2017-12-04 14:16] VITALS: BP 127/64; PULSE 88
== END 2017-12-04 18:31 | disposition home or self-care (01) | DRG 392 ==
LOC: ED 11:27 → ERH 13:54 → 5RNO 21:07 → OBSVTOIN 12-02 19:24
PROVIDERS: ADMIT Internal Medicine; ATTEND Internal Medicine
PROC: 0DB68ZX Excision of Stomach, Via Natural or Artificial Opening Endoscopic, Diagnostic (ICD-10-PCS; 2017-12-04)
PROC: 0DB58ZX Excision of Esophagus, Via Natural or Artificial Opening Endoscopic, Diagnostic (ICD-10-PCS; 2017-12-04)
PROC: 0DB98ZX Excision of Duodenum, Via Natural or Artificial Opening Endoscopic, Diagnostic (ICD-10-PCS; principal; 2017-12-04 12:45)
DX: K31.84 Gastroparesis (principal); K21.0 Gastro-esophageal reflux disease with esophagitis; F11.20 Opioid dependence, uncomplicated; R63.4 Abnormal weight loss; J44.9 Chronic obstructive pulmonary disease, unspecified; G89.4 Chronic pain syndrome; F51.04 Psychophysiologic insomnia; M54.17 Radiculopathy, lumbosacral region; K29.50 Unspecified chronic gastritis without bleeding; K29.80 Duodenitis without bleeding; K59.00 Constipation, unspecified; F17.210 Nicotine dependence, cigarettes, uncomplicated; D64.9 Anemia, unspecified; G43.909 Migraine, unspecified, not intractable, without status migrainosus; F32.9 Major depressive disorder, single episode, unspecified; F12.90 Cannabis use, unspecified, uncomplicated; Z86.718 Personal history of other venous thrombosis and embolism

== ENCOUNTER 2018-02-26 16:18 | Inpatient (IN) | payer MEDICARE, OTHER ==
[2018-02-26 16:22] VITALS: BMI 26.4
--- NOTE | 2018-02-26 16:48 | ED PDOC ---
Arrival/HPI - General Historian: Patient - History of Present Illness Narrative History of Present Illness (Text): 02/26/18 16:39 52yo female with pmhx of chronic back pain present to ED with complaint of right sided rib pain s/p trauma 2days ago. she report mechanical fall 2days ago, while getting out of her shower and twisted her right side. States she is currently on oxycontin, oxycodone for her chronic back pain. Took it this morning with some relieve, but pain came back again. Reports pain with any movement. Denies chest pain, SOB, headache, LOC, back pain, focal weakness, any other complaint. <Diru,Happiness A - Last Filed: 02/26/18 18:50> <Ward Morillo - Last Filed: 02/27/18 08:19> - General Chief Complaint: Rib Injury Time Seen by Provider: 02/26/18 16:22 Past Medical History - Provider Review Nursing Documentation Reviewed: Yes - Infectious Disease Hx of Infectious Diseases: None - Tetanus Immunization Tetanus Immunization: Unknown - Cardiac Hx Cardiac Disorders: No - Pulmonary Hx Respiratory Disorders: Yes Hx Asthma: Yes - Neurological Hx Paralysis: No - HEENT Hx HEENT Disorder: No - Renal Hx Renal Disorder: No - Endocrine/Metabolic Hx Endocrine Disorders: No - Hematological/Oncological Hx Blood Disorders: Yes Hx Blood Transfusions: Yes - Integumentary Hx Dermatological Disorder: No - Musculoskeletal/Rheumatological Hx Musculoskeletal Disorders: Yes Hx Back Pain: Yes - Gastrointestinal Hx Gastrointestinal Disorders: Yes - Genitourinary/Gynecological Hx Genitourinary Disorders: No - Psychiatric Hx Emotional Abuse: No Hx Physical Abuse: No Hx Substance Use: Yes (CANNABIS) - Surgical History Other/Comment: back surgery. tubal ligation. c/s - Anesthesia Hx Anesthesia Reactions: No Hx Malignant Hyperthermia: No - Suicidal Assessment Feels Threatened In Home Enviroment: No <Diru,Happiness A - Last Filed: 02/26/18 18:50> Family/Social History - Physician Review Nursing Documentation Reviewed: Yes Family/Social History: Unknown Family HX Smoking Status: Light Smoker < 10 Cigarettes Daily Hx Alcohol Use: Yes (SOCIALLY) Hx Substance Use: Yes (CANNABIS) Hx Substance Use Treatment: No <Diru,Happiness A - Last Filed: 02/26/18 18:50> Allergies/Home Meds <Diru,Happiness A - Last Filed: 02/26/18 18:50> <Ward Morillo - Last Filed: 02/27/18 08:19> Allergies/Adverse Reactions: Allergies No Known Allergies Allergy (Verified 02/26/18 16:28) Home Medications: Home Meds Medication Instructions Recorded Confirmed Gabapentin [Neurontin] 300 mg PO BID 02/05/17 02/26/18 Oxycodone HCl [Oxycontin] 30 mg PO BID 02/05/17 02/26/18 RX: oxyCODONE [oxyCODONE Immediate 10 mg PO TID 12/01/17 02/26/18 Release Tab] Review of Systems - Physician Review All systems were reviewed & negative as marked: Yes - Review of Systems Constitutional: Normal Eyes: Normal ENT: Normal Respiratory: Normal Cardiovascular: Normal Gastrointestinal: Normal Genitourinary Female: Normal Musculoskeletal: Arthralgias (Right rib) Skin: Normal Neurological: Normal Endocrine: Normal Hemo/Lymphatic: Normal Psychiatric: Normal <Aurelio Garcia A - Last Filed: 02/26/18 18:50> Physical Exam Vital Signs Reviewed: Yes Vital Signs Temp Pulse Resp BP Pulse Ox 02/26/18 16:28 98.4 F 98 H 17 115/73 94 L Temperature: Afebrile Blood Pressure: Normal Pulse: Regular Respiratory Rate: Normal Appearance: Positive for: Well-Appearing, Non-Toxic, Comfortable Pain Distress: None Mental Status: Positive for: Alert and Oriented X 3 - Systems Exam Head: Present: Atraumatic, Normocephalic Pupils: Present: PERRL Extroacular Muscles: Present: EOMI Conjunctiva: Present: Normal Mouth: Present: Moist Mucous Membranes Neck: Present: Normal Range of Motion Respiratory/Chest: Present: Clear to Auscultation, Good Air Exchange, Tender to Palpation (Right lateral ribs). No: Respiratory Distress, Accessory Muscle Use, Wheezes, Decreased Breath Sounds, Rales, Retracting, Rhonchi Cardiovascular: Present: Regular Rate and Rhythm, Normal S1, S2. No: Murmurs Abdomen: No: Tenderness, Distention, Peritoneal Signs Back: Present: Normal Inspection Upper Extremity: Present: Normal Inspection. No: Cyanosis, Edema Lower Extremity: Present: Normal Inspection. No: Edema Neurological: Present: GCS=15, CN II-XII Intact, Speech Normal Skin: Present: Warm, Dry, Normal Color. No: Rashes Psychiatric: Present: Alert, Oriented x 3, Normal Insight, Normal Concentration <Diru,Happiness A - Last Filed: 02/26/18 18:50> Vital Signs Temp Pulse Resp BP Pulse Ox 02/26/18 18:45 98.4 F 71 18 118/75 100 02/26/18 16:28 98.4 F 98 H 17 115/73 94 L <Makenna Morilloil - Last Filed: 02/27/18 08:19> Medical Decision Making ED Course and Treatment: 02/26/18 17:38 PT presented to ED for stated history. she was not hypoxic. Hemodynamicallyu stable. Denied SOB. Right ribs/chest xray IMPRESSION: Right 4th, 5th and 6th and potentially 7th rib fractures are identified with right chest wall, axilla, supraclavicular fossa and right neck base emphysema soft tissue changes are identified. Trace pneumothorax not excluded the right base with remaining pleural space appearing normal at the right hemithorax. No left pneumothorax. No pleural effusion bilaterally. Precautionary follow-up chest radiographs with inspiration and expiration projections are advised to better evaluate for potential pneumothorax. Pt will be admitted for above findings Chest CT ordered Case was LIBORIO Lopez and she accepted pt to her service. Request Drs. Castle and Evan consult. EKG NSR @ 77bpm 02/26/2018 18:[address] IMPRESSION: 1. Acute fractures of the right fifth through ninth ribs, with adjacent chest wall air. 2. Right pneumothorax, approximately 15% in size. 3. Complete right middle lob collapse. 4. 2 cm nodule or cyst within the right thyroid lobe. A follow-up thryoid ultra sound could be obtained. 5. Small right pleural effusion and right lower lobe atelectasis. Dictator: Nikko Munoz MD PT placed on 3L of NC Case was LIBORIO Potts, surgical instruments inspector while she was in ED and she saw pt by the bedside. Called and stated she and Dr. Gordon reviewed the chest CT and will patient tomorrow for possible placement of a tube. 1 - RAD Interpretation Radiology Orders: 02/26/18 16:36 RIBS RIGHT & PA CHEST [RAD] Stat - Medication Orders Current Medication Orders: Ketorolac Tromethamine (Toradol) 60 mg IM STAT STA Stop: 02/26/18 16:38 <RadhaAurelio A - Last Filed: 02/26/18 18:50> ED Course and Treatment: pt seen with pa bedsid.e s/p fall with multiple rib fx. cxr and ct shows small 15% pneumo. case seen by surgery bedside. as fall 3 days ago, minimal pneumo, loculated, at base, 3 days of symptosm speaking full sentences no hypoxia, will obs and reeval for chest tube. 02/27/18 08:18 - RAD Interpretation Radiology Orders: 02/26/18 16:36 RIBS RIGHT & PA CHEST [RAD] Stat - Medication Orders Current Medication Orders: Gabapentin (Neurontin) 300 mg PO BID DARIEN; Protocol Last Admin: 02/26/18 21:38 Dose: 300 mg Behavioural Document 02/26/18 21:38 SSE (Rec: 02/26/18 21:38 SSE [id number]) Maintenance Maintenance Dose Yes Nonmedicinal Nonmedicinal Interventions Redirect Re-Assess: Reassess Psych Meds Document 02/26/18 22:38 SSE (Rec: 02/27/18 04:57 SSE [id number]) Reassess Psych Med Effective Oxycodone/Acetaminophen (Percocet 5/325 Mg Tab) 1 tab PO Q4H PRN PRN Reason: Pain, moderate (4-7) Stop: 03/01/18 21:22 Last Admin: 02/27/18 05:18 Dose: 1 tab MAR Pain Assessment Document 02/27/18 05:18 SSE (Rec: 02/27/18 05:18 SSE [id number]) Pain Reassessment Is this a pain reassessment? Yes Sleep Is patient sleeping during reassessment? No Presence of Pain Presence of Pain Yes Pain Scale Used Protocol: PSCALES Pain Scale Used Numeric Location Pain Location Body Site Chest Description Description Constant Intensity of Pain at present 8 Discontinued Medications Hydromorphone HCl (Dilaudid) 0.5 mg IVP STAT STA Stop: 02/27/18 07:01 Last Admin: 02/27/18 07:23 Dose: 0.5 mg MAR Pain Assessment Document 02/27/18 07:23 SSE (Rec: 02/27/18 07:24 SSE [id number]) Pain Reassessment Is this a pain reassessment? Yes Sleep Is patient sleeping during reassessment? No Presence of Pain Presence of Pain Yes Pain Scale Used Protocol: [facility] Pain Scale Used Numeric Location Pain Location Body Site Chest Description Description Constant Intensity of Pain at present 8 IVP Administration Document 02/27/18 07:23 SSE (Rec: 02/27/18 07:24 [id number] Charges for Administration # of IVP Administrations 1 Influenza Virus Vaccine (Flucelvax Quad [id number] Syr) 60 mcg IM .ONCE ONE Stop: 02/26/18 20:53 Last Admin: 02/26/18 21:07 Dose: Not Given Non-Admin Reason: Patient Refused Immunization Registry Document 02/26/18 21:07 SSE (Rec: 02/26/18 21:07 SSE [id number]) [facility]-Date provided 02/26/18 Ketorolac Tromethamine (Toradol) 60 mg IM STAT STA Stop: 02/26/18 16:38 Last Admin: 02/26/18 17:06 Dose: 60 mg MAR Pain Assessment Document 02/26/18 17:06 LA (Rec: 02/26/18 17:07 LA [id number] Pain Reassessment Is this a pain reassessment? No Sleep Is patient sleeping during reassessment? No Presence of Pain Presence of Pain Yes Pain Scale Used Protocol: [facility] Pain Scale Used Numeric Location Left, Right or Bilateral Right Description Description Intermittent Intensity of Pain at present 10 Pain Behavior Guarding IM Administration Charges Document 02/26/18 17:06 LA (Rec: 02/26/18 17:07 LA [id number]) Injection Site MAR Injection Site Left Arm Charges for Administration # of IM Administrations 1 Re-Assess: MAR Pain Assessment Document 02/26/18 18:06 SSE (Rec: 02/26/18 21:07 SSE [id number]) Pain Reassessment Is this a pain reassessment? Yes Sleep Is patient sleeping during reassessment? No Presence of Pain Presence of Pain Yes Pain Scale Used Protocol: [facility] Pain Scale Used Numeric Location Pain Location Body Site Chest Description Description Constant Lorazepam (Ativan) 0.25 mg IVP ONCE ONE; Protocol Stop: 02/27/18 07:26 Pneumococcal Polyvalent Vaccine (Pneumovax 23 Vaccine) 0.5 ml IM .ONCE ONE Stop: 02/26/18 20:53 Last Admin: 02/26/18 21:07 Dose: Not Given Non-Admin Reason: Patient Refused Immunization Registry Document 02/26/18 21:07 SSE (Rec: 02/26/18 21:07 SSE [id number]) [facility]-Date provided 02/26/18 <Ward Morillo - Last Filed: 02/27/18 08:19> Disposition/Present on Arrival - Present on Arrival Any Indicators Present on Arrival: No History of DVT/PE: No History of Uncontrolled Diabetes: No Urinary Catheter: No History of Decub. Ulcer: No History Surgical Site Infection Following: None - Disposition Have Diagnosis and Disposition been Completed?: Yes Disposition Time: 17:45 Patient Plan: Admission <Aurelio Garcia - Last Filed: 02/26/18 18:50> <Ward Morillo - Last Filed: 02/27/18 08:19> - Disposition Diagnosis: Rib fractures, Pneumothorax Disposition: HOSPITALIZED Patient Problems: Current Active Problems Problem Status Onset Pneumothorax Acute Rib fractures Acute Condition: STABLE
--- NOTE | 2018-02-26 17:40 | RAD ---
Date of service: 02/26/2018 PROCEDURE: Radiographs of the Chest and Right Ribs. HISTORY: rib pain s/p trauma COMPARISON: Right ribs with chest 11/17/2013. TECHNIQUE: Frontal radiograph of the chest and multiple oblique radiographs of the right ribs were obtained. FINDINGS: RIGHT RIBS: Fracture of the 4th, 5th and 6th ribs are identified with the 5th and 6th rib fracture fragment is minimally displaced laterally. Nondisplaced fracture of the 7th posterolateral right rib is not excluded. LUNGS: Emphysematous change are identified at the right chest wall/axilla with extension into the right supraclavicular fossa and right neck base. PLEURA: No large pneumothorax bilaterally or pleural effusion. Consider follow-up inspiration expiration chest radiographs for additional evaluation nevertheless a small right basilar pneumothorax difficult to completely exclude. CARDIOVASCULAR: Normal cardiac size. No pulmonary vascular congestion. No aortic atherosclerotic calcification present OTHER FINDINGS: None. IMPRESSION: Right 4th, 5th and 6th and potentially 7th rib fractures are identified with right chest wall, axilla, supraclavicular fossa and right neck base emphysema soft tissue changes are identified. Trace pneumothorax not excluded the right base with remaining pleural space appearing normal at the right hemithorax. No left pneumothorax. No pleural effusion bilaterally. Precautionary follow-up chest radiographs with inspiration and expiration projections are advised to better evaluate for potential pneumothorax.
[2018-02-26 18:10] LABS: ALB/GLOB RATIO 1.3 (1.1-1.8); ALBUMIN 3.9 g/dL (3.0-4.8); ALT/SGPT 42 U/L (7-56); AST/SGOT 39 U/L (14-36); BLOOD UREA NITROGEN 24 mg/dL (7-21); CALCIUM 9.1 mg/dL (8.4-10.5); GFR NON-AFRICAN AMERICAN > 60
[2018-02-26 18:14] LABS: BASO # 0.02 K/mm3 (0.0-2.0); BASO % 0.2 % (0.0-3.0); EOS # 0.1 (0.0-0.7); EOS % 0.9 % (1.5-5.0); GRAN # 6.71 (1.4-6.5); GRAN % 72.9 % (50.0-68.0); HEMOGLOBIN 12.5 g/dL (12.0-16.0); LYMPH # 1.5 (1.2-3.4); MEAN CELL VOLUME 88.4 fl (80.0-105.0); MEAN CORPUSCULAR HEMOGLOBIN 29.6 pg (25.0-35.0); MEAN CORPUSCULAR HGB CONC 33.5 g/dl (31.0-37.0); MEAN PLATELET VOLUME 10.3 fl (7.0-11.0); MONO # 0.9 (0.1-0.6); RBC 4.22 10^6/uL (3.5-6.1); RED CELL DISTRIBUTION WIDTH 14.7 % (11.5-14.5); WHITE BLOOD COUNT 9.2 10^3/uL (4.5-11.0)
[2018-02-26 18:17] LABS: INR 1.09; PARTIAL THROMBOPLASTIN TIME 24.7 Seconds (25.1-36.5); PROTHROMBIN TIME 12.5 SECONDS (9.4-12.5)
[2018-02-26] MEDS ORDERED: Pneumococcal 23-Valent Vaccine IM ONE (20:52)
[2018-02-26] MEDS ORDERED: Influenza Vaccine 60 mcg/0.5 mL SYR (4YR UP) IM ONE (20:52)
[2018-02-26] MEDS: Oxycodone/Acetaminophen 5/325 mg Tab PO PRN (21:38)
--- NOTE | 2018-02-27 01:18 | CP.PCM.CON ---
History of Present Illness - History of Present Illness History of Present Illness: General Surgery consult note for Dr. Gordon consulted for pneumothorax Patient is a 52 yr old female with PMH asthma who presents to [facility] [place] [place] ED after having fallen down stairs 2 days ago. She states she is continuing to have chest wall pain and was concerned she may have broken ribs. She denies any abusive situations or other causes for her injuries. She denies any SOB at rest but states she often becomes short of breath in cold air 2/2 to her asthma. At this time she otherwise denies dizziness, cough, coughing up blood, SOB, MORENO, abdominal pain, dysuria, stool changes and extremity pain/weakness. PMH: asthma, chronic back pain PSH: tubal ligation, back surgery All: NKDA Social: smoker less than 1/2 ppd, denies drugs and ETOH Review of Systems - Review of Systems All systems: reviewed and no additional remarkable complaints except (as per HPI) Past Patient History - Infectious Disease Hx of Infectious Diseases: None - Tetanus Immunizations Tetanus Immunization: Unknown - Past Social History Smoking Status: Light Smoker < 10 Cigarettes Daily - CARDIAC Hx Cardiac Disorders: No - PULMONARY Hx Respiratory Disorders: Yes Hx Asthma: Yes - NEUROLOGICAL Hx Neurological Disorder: No - HEENT Hx HEENT Problems: No - RENAL Hx Chronic Kidney Disease: No - ENDOCRINE/METABOLIC Hx Endocrine Disorders: No - HEMATOLOGICAL/ONCOLOGICAL Hx Blood Disorders: Yes - INTEGUMENTARY Hx Dermatological Problems: No - MUSCULOSKELETAL/RHEUMATOLOGICAL Hx Falls: Yes - GASTROINTESTINAL Hx Gastrointestinal Disorders: Yes - GENITOURINARY/GYNECOLOGICAL Hx Genitourinary Disorders: No - PSYCHIATRIC Hx Emotional Abuse: No Hx Physical Abuse: No Hx Substance Use: No - SURGICAL HISTORY Other/Comment: back surgery. tubal ligation. c/s - ANESTHESIA Hx Anesthesia Reactions: No Hx Malignant Hyperthermia: No Meds Allergies/Adverse Reactions: Allergies Allergy/AdvReac Type Severity Reaction Status Date / Time No Known Allergies Allergy Verified 02/26/18 16:28 - Medications Medications: Current Medications Gabapentin (Neurontin) 300 mg PO BID [facility]; Protocol Last Admin: 02/26/18 21:38 Dose: 300 mg Oxycodone/Acetaminophen (Percocet 5/325 Mg Tab) 1 tab PO Q4H PRN PRN Reason: Pain, moderate (4-7) Stop: 03/01/18 21:22 Last Admin: 02/26/18 21:38 Dose: 1 tab Physical Exam - Constitutional Appears: Well, Non-toxic, No Acute Distress - Head Exam Head Exam: ATRAUMATIC, NORMOCEPHALIC - Eye Exam Eye Exam: EOMI - ENT Exam ENT Exam: Mucous Membranes Moist - Respiratory Exam Respiratory Exam: Chest Wall Tenderness (right side), Decreased Breath Sounds (RLL). absent: Accessory Muscle Use, Respiratory Distress Additional comments: pt saturating 98% room air, breathing comfortably - Cardiovascular Exam Cardiovascular Exam: REGULAR RHYTHM - GI/Abdominal Exam GI & Abdominal Exam: Soft. absent: Distended, Guarding, Tenderness - Extremities Exam Extremities exam: Positive for: normal capillary refill, pedal pulses present. Negative for: calf tenderness, pedal edema - Neurological Exam Neurological exam: Alert, Oriented x3 - Psychiatric Exam Psychiatric exam: Normal Affect, Normal Mood - Skin Skin Exam: Dry, Intact, Warm Results - Vital Signs Recent Vital Signs: Last Vital Signs Temp 97.7 F 02/27/18 00:01 Pulse 73 02/27/18 00:01 Resp 20 02/27/18 00:01 BP 92/49 L 02/27/18 00:17 Pulse Ox 97 02/27/18 00:01 - Labs Result Diagrams: 02/26/18 17:40 02/26/18 17:40 Labs: Laboratory Results - last 24 hr 02/26/18 02/26/18 02/26/18 17:40 17:40 17:40 WBC 9.2 RBC 4.22 Hgb 12.5 Hct 37.3 MCV 88.4 MCH 29.6 MCHC 33.5 RDW 14.7 H Plt Count 137 MPV 10.3 Gran % 72.9 H Lymph % (Auto) 16.0 L [place] % (Auto) 10.0 H Eos % (Auto) 0.9 L Baso % (Auto) 0.2 Gran # 6.71 H Lymph # (Auto) 1.5 Kent # (Auto) 0.9 H Eos # (Auto) 0.1 Baso # (Auto) 0.02 PT 12.5 INR 1.09 APTT 24.7 L Sodium 133 Potassium 4.1 Chloride 101 Carbon Dioxide 26 Anion Gap 10 BUN 24 H Creatinine 0.7 Est GFR ( Amer) > 60 Est GFR (Non-Af Amer) > 60 Random Glucose 116 H Calcium 9.1 Total Bilirubin 0.4 AST 39 H D ALT 42 Alkaline Phosphatase 61 Total Protein 6.8 Albumin 3.9 Globulin 2.9 Albumin/Globulin Ratio 1.3 Blood Type Blood Type Confirm Antibody Screen BBK History Checked 02/26/18 02/26/18 17:57 19:00 WBC RBC Hgb Hct MCV MCH MCHC RDW Plt Count MPV Gran % Lymph % (Auto) Kent % (Auto) Eos % (Auto) Baso % (Auto) Gran # Lymph # (Auto) Kent # (Auto) Eos # (Auto) Baso # (Auto) PT INR APTT Sodium Potassium Chloride Carbon Dioxide Anion Gap BUN Creatinine Est GFR ( Amer) Est GFR (Non-Af Amer) Random Glucose Calcium Total Bilirubin AST ALT Alkaline Phosphatase Total Protein Albumin Globulin Albumin/Globulin Ratio Blood Type A POSITIVE Blood Type Confirm A POSITIVE Antibody Screen Negative BBK History Checked No verified bt Assessment & Plan - Assessment and Plan (Free Text) Assessment: 52 F with right sided pneumothorax Plan: pain control no acute respiratory distress O2 nasal cannula PRN chest tube placement in AM if not improved Discussed with Dr. Gordon, further recs per him Katlyn Garcia, PGY 1 - Date & Time Date: 02/26/18 Time: 17:45
[2018-02-27] MEDS: Oxycodone/Acetaminophen 5/325 mg Tab PO PRN ×3 (05:18→23:02)
[2018-02-27] MEDS ORDERED: HYDROmorphone 0.5 mg/0.5 ml ISec IVP STA ×2 (07:00→09:29)
--- NOTE | 2018-02-27 07:31 | RAD ---
Date of service: 02/27/2018 HISTORY: pneumothorax COMPARISON: Right ribs with chest radiographs 02/26/2018. Noncontrast chest CT 02/26/2018. FINDINGS: LUNGS: Multiple upper mid right rib fractures are again appreciated laterally with emphysematous soft tissue changes at the right chest wall axilla and right neck reiterated, borderline increased at the right chest wall. Prior chest CT confirmed pneumothorax with limited lucency at the inferior right lung zone diminished suggesting likely improvement. Dense atelectasis in the right middle and lower lobes obscure medial right hemidiaphragm again with right heart border now obscured. Left chest remains well aerated with no infiltrate appreciated. No definitive pleural effusion bilaterally. No left sided pneumothorax. PLEURA: As above. CARDIOVASCULAR: No aortic atherosclerotic calcification present. Normal cardiac size. No pulmonary vascular congestion. OSSEOUS STRUCTURES: No significant abnormalities. VISUALIZED UPPER ABDOMEN: Normal. OTHER FINDINGS: None. IMPRESSION: Likely reduction in right pneumothorax at the right base with persistent atelectasis at the right middle and lower lobes. Limited increase in right chest wall emphysema stable at the right axilla and inferior right neck. Right rib fractures reiterated.
[2018-02-27 07:41] LABS: BASO # 0.03 K/mm3 (0.0-2.0); BASO % 0.5 % (0.0-3.0); EOS # 0.1 (0.0-0.7); GRAN # 3.68 (1.4-6.5); GRAN % 66.3 % (50.0-68.0); HEMOGLOBIN 11.4 g/dL (12.0-16.0); LYMPH # 1.2 (1.2-3.4); LYMPH % 22.2 % (22.0-35.0); MEAN CELL VOLUME 89.4 fl (80.0-105.0); MEAN CORPUSCULAR HEMOGLOBIN 29.5 pg (25.0-35.0); MEAN CORPUSCULAR HGB CONC 32.9 g/dl (31.0-37.0); MEAN PLATELET VOLUME 10.4 fl (7.0-11.0); MONO # 0.5 (0.1-0.6); RBC 3.87 10^6/uL (3.5-6.1); WHITE BLOOD COUNT 5.6 10^3/uL (4.5-11.0)
[2018-02-27 07:50] LABS: ALB/GLOB RATIO 1.2 (1.1-1.8); ALBUMIN 3.3 g/dL (3.0-4.8); ALT/SGPT 42 U/L (7-56); AST/SGOT 36 U/L (14-36); BLOOD UREA NITROGEN 25 mg/dL (7-21); CALCIUM 8.9 mg/dL (8.4-10.5); GFR NON-AFRICAN AMERICAN > 60
--- NOTE | 2018-02-27 08:13 | CT ---
Date of service: 02/26/2018 PROCEDURE: CT Chest without contrast HISTORY: Right rib fracture COMPARISON: None available. TECHNIQUE: Contiguous axial images were obtained through the chest without intravenous contrast enhancement. Sagittal and coronal reconstructions were performed. Radiation dose: Total exam DLP = 192.91 mGy-cm. This CT exam was performed using one or more of the following dose reduction techniques: Automated exposure control, adjustment of the mA and/or kV according to patient size, and/or use of iterative reconstruction technique. FINDINGS: LUNGS: Clear lungs. Visualized airway clear MEDIASTINUM: Unremarkable thoracic aorta. No aneurysm. Normal sized heart. Main pulmonary artery unremarkable. No vascular congestion. No lymphadenopathy. No aortic atherosclerotic calcification. PLEURA: Large right pneumothorax with associated right pleural effusion and subsegmental atelectatic change at the right base. Associated extensive subcutaneous emphysema. BONES: Right lateral 6th and 7th rib fractures. UPPER ABDOMEN: Grossly unremarkable. OTHER FINDINGS: The 19 millimeter hypodense nodule in the right lobe of the thyroid gland. IMPRESSION: Large right pneumothorax with associated right pleural effusion and subsegmental atelectatic change at the right base. Associated extensive subcutaneous emphysema.Right lateral 6th and 7th rib fractures.19 millimeter hypodense nodule in the right lobe of the thyroid gland.
--- NOTE | 2018-02-27 09:28 | PCM.PROC ---
Procedures Attestation:: I certify that I have explained the specified Operation(s) or Procedure(s), risks, benefits and reasonable alternatives to the Patient and/or other person responsible. The opportunity was given to ask questions and all questions answered - Chest Tube Chest Tube Location: Lateral Chest Right, Mid-Axillary Right Size of Tube (cm): 28 (Amharic) Chest Tube Procedure: Chlorhexidine Tube Sutured to Skin: Yes Sterile Dressing Applied: Yes Anesthesia: Lidocaine 1% Volume Anesthetic (mls): 20 Incision Made With: #10 blade Post Procedure: sutured to skin, sterile dressing applied, air occlusive dressing Chopra of Air [place]: Yes Tube Drainage: blood (small amount of serosanguinbous fluid then air) Post Procedure CXR?: Yes Patient Tolerated Procedure: Yes Complications: tube needs to be repositioned Progress: [place] hole inside thorax/ pleural cavity, tube needs to be pulled back approximately 3-4 cm
[2018-02-27] MEDS: Lidocaine 5% Patch TD SCH (09:40)
[2018-02-27] MEDS ORDERED: Lidocaine 5% Patch TD SCH (10:00)
[2018-02-27] MEDS ORDERED: Albuterol-Ipratrop 3 mg / 0.5 (3 ml) UD IH PRN (11:49)
--- NOTE | 2018-02-27 13:07 | CON ---
DATE: 02/27/2018 PULMONARY CONSULT NOTE REFERRING PHYSICIAN: Scarlet Lopez MD REASON FOR CONSULT: Chronic lung disease, right pneumothorax, pleural effusion and right fracture. HISTORY OF PRESENT ILLNESS: This is a 52-year-old female with past medical history significant for major depression, insomnia, chronic lung disease, L2-L3 laminectomy and fusion, chronic pain syndrome who presented to emergency room with complaints of rib pain right-sided after having a mechanical fall getting out of her shower. Rib and chest x-ray showed right fourth, fifth, sixth and potentially seventh rib fractures. There was trace pneumothorax, not excluded the right base with remaining pleural space appearing normal. Today, the patient has chest tube to right side in place. Reports some pain as she just had chest tube readjusted. No coughing. No shortness of breath. No headache, rhinitis, abdominal pain, nausea, vomiting, diarrhea, leg pain or leg swelling reported. PAST MEDICAL HISTORY: As per history of present illness. ALLERGIES: NO KNOWN ALLERGIES. SOCIAL HISTORY: Smoker, social drinker and reports using cannabis. FAMILY HISTORY: No significant cardiopulmonary disease reported. MEDICATION: Reviewed. Tylenol 975 mg every 8 hours, Neurontin 300 mg twice a day, Heparin 5000 units subcutaneous every 8 hours, Lidoderm patch topically affected area daily and Percocet 5/325 1 tab p.o. every 4 hours p.r.n. REVIEW OF SYSTEMS: No headache, rhinitis, cough, shortness of breath, abdominal pain, nausea, vomiting, diarrhea, leg pain or leg swelling reported. The patient does report pain at chest tube site. PHYSICAL EXAMINATION: GENERAL: No acute distress. VITAL SIGNS: Blood pressure is 88/56, pulse 71, temperature 99.8 and oxygen saturation 98%. HEENT: Moist mucous membrane. No ulcers or thrush. NECK: Supple. No JVD. LUNGS: Decreased breath sounds. Right lower lobe chest wall tenderness on right side. CARDIOVASCULAR: S1 and S2 audible. ABDOMEN: Soft and nontender. No distention. No organomegaly. Positive bowel sounds. EXTREMITIES: No bilateral lower extremity edema. NEUROLOGICAL: Awake, alert and verbal. Follows simple commands. LABORATORY DATA: Reviewed. WBC 5.6, RBC 3.87, hemoglobin 11.4, hematocrit 34.6 and platelets 109. Sodium 137, potassium 4, chloride 107, carbon dioxide 24, anion gap 9, BUN 25, creatinine 0.7, GFR greater than 60, random glucose 99, calcium 8.9, phosphorous 3.8, magnesium 1.8, total bilirubin 0.6, AST 36, ALT 42, alkaline phosphatase 50, total protein 6, albumin 3.3, globulin 2.8 and albumin-globulin ratio 1.2. Chest x-ray shows likely reduction in right pneumothorax at the right base with persisted atelectasis at the right middle and lower lobe, limited increase in right chest wall emphysema stable at the right axilla and inferior right neck, right rib fracture reiterated. Second chest x-ray pending reports. IMPRESSION AND PLAN: Traumatic lung injury, right side pneumothorax, status post fall, right ribs fracture, chronic lung disease, history of L2-L3 laminectomy and fusion, chronic pain syndrome, history of insomnia, history of deep venous thrombosis, history of depression, and chest tube in place. We will add inhaled bronchodilators, Protonix for gastric prophylaxis. Continue deep venous thrombosis prophylaxis and pain management. Continue surgical followup. This patient was seen and examined with Dr. Castle. Discussed assessment and plan as described above. Thank you for this consult. We will follow with you. Ayad Green APN Eliazar Castle MD [place]
--- NOTE | 2018-02-27 15:29 | RAD ---
Date of service: 02/27/2018 HISTORY: chest tube placement COMPARISON: Portable chest 02/27/2018 7:05 a.m.. FINDINGS: LUNGS: Right chest tube is identified placed terminating at the midline superior right chest with diminished right basilar pneumothorax suggested. Linear atelectasis identified in the right base. Left lung remains clear. Emphysematous soft tissue changes are again seen at the right chest wall laterally, mildly increased, diminished at the right axilla/subclavian region and not significantly changed at the right neck. No definite pleural effusion bilaterally or left pneumothorax. PLEURA: As above. CARDIOVASCULAR: No aortic atherosclerotic calcification present. Normal cardiac size. No pulmonary vascular congestion. OSSEOUS STRUCTURES: No significant abnormalities. VISUALIZED UPPER ABDOMEN: Normal. OTHER FINDINGS: None. IMPRESSION: Interval right chest tube deployment as discussed above. Diminished right pneumothorax with trace residual at the base.
[2018-02-27] MEDS: Budesonide 0.5 mg/2 ml Inhal Susp UD IH SCH (19:58)
[2018-02-27] MEDS: Arformoterol 15 mcg/2 ml Inh Sol IH SCH (19:58)
[2018-02-27] MEDS: Morphine 2 mg/ml ISec IVP PRN (20:31)
[2018-02-27] MEDS: Pantoprazole 40 mg EC Tab PO SCH (21:36)
--- NOTE | 2018-02-28 00:09 | CARD ---
APPROVED REPORT Date of service: 02/26/2018 EKG Measurement Heart [id number] <Conclusion> Normal sinus rhythm Normal ECG
[2018-02-28] MEDS: Morphine 2 mg/ml ISec IVP PRN ×3 (01:49→17:10)
[2018-02-28 02:00] LABS: URINE BILIRUBIN NEGATIVE (NEGATIVE); URINE BLOOD MODERATE (NEGATIVE); URINE GLUCOSE (UA) NEGATIVE (NEGATIVE); URINE LEUKOCYTE ESTERASE TRACE Leu/uL (NEGATIVE); URINE PROTEIN NEGATIVE mg/dL (<30 mg/dL); URINE UROBILINOGEN 0.2 E.U./dL (<1 E.U./dL)
[2018-02-28 02:02] LABS: URINE APPEARANCE SL CLOUDY (CLEAR); URINE COLOR YELLOW (YELLOW)
[2018-02-28 02:19] LABS: URINE BACTERIA SMALL /hpf; URINE EPITHELIAL CELLS MANY /hpf (0-5)
[2018-02-28 06:51] LABS: ALB/GLOB RATIO 1.2 (1.1-1.8); ALBUMIN 3.6 g/dL (3.0-4.8); ALT/SGPT 33 U/L (7-56); AST/SGOT 29 U/L (14-36); BLOOD UREA NITROGEN 12 mg/dL (7-21); CALCIUM 8.9 mg/dL (8.4-10.5); GFR NON-AFRICAN AMERICAN > 60; HDL CHOLESTEROL 47 mg/dL (29-60)
[2018-02-28 06:54] LABS: LDL CHOLESTEROL 78 mg/dL (0-129)
[2018-02-28 07:02] LABS: IRON 19 ug/dL (45-180)
--- NOTE | 2018-02-28 07:06 | CP.PCM.PN ---
Subjective - Date & Time of Evaluation Date of Evaluation: 02/28/18 Time of Evaluation: 06:30 - Subjective Subjective: Patient seen and examined. Complaining of pain at chest incision site. No air leak noted. 85cc/24hrs serosanguinous. Objective - Vital Signs/Intake and Output Vital Signs (last 24 hours): Temp Pulse Resp BP Pulse Ox 98.2 F 58 L 20 125/70 100 02/28/18 05:57 02/28/18 05:57 02/28/18 05:57 02/28/18 05:57 02/28/18 00:01 Intake and Output: 02/28/18 02/28/18 06:59 18:59 Intake Total 120 Output Total 85 Balance 35 - Medications Medications: Current Medications Acetaminophen (Tylenol 325mg Tab) 975 mg PO Q8 [facility] Stop: 03/01/18 09:01 Last Admin: 02/28/18 05:26 Dose: 975 mg Albuterol/Ipratropium (Duoneb 3 Mg/0.5 Mg (3 Ml) Ud) 3 ml IH [id number] PRN PRN Reason: Shortness of Breath Arformoterol Tartrate (Brovana) 15 mcg IH [id number] [facility] Last Admin: 02/27/18 19:58 Dose: 15 mcg Budesonide (Pulmicort Respules) 0.5 mg IH [id number] [facility] Last Admin: 02/27/18 19:58 Dose: 0.5 mg Gabapentin (Neurontin) 300 mg PO BID [facility]; Protocol Last Admin: 02/27/18 17:34 Dose: 300 mg Heparin Sodium (Porcine) (Heparin) 5,000 units SC Q8 [facility]; Protocol Last Admin: 02/28/18 05:26 Dose: 5,000 units Lidocaine (Lidoderm) 1 ea TD DAILY [facility] Last Admin: 02/27/18 09:40 Dose: 1 ea Morphine Sulfate (Morphine) 2 mg IVP Q4H PRN PRN Reason: Pain, severe (8-10) Last Admin: 02/28/18 05:27 Dose: 2 mg Oxycodone/Acetaminophen (Percocet 5/325 Mg Tab) 1 tab PO Q4H PRN PRN Reason: Pain, moderate (4-7) Stop: 03/01/18 21:22 Last Admin: 02/27/18 23:02 Dose: 1 tab Pantoprazole Sodium (Protonix Ec Tab) 40 mg PO HS [facility] Last Admin: 02/27/18 21:36 Dose: 40 mg - Labs Labs: 02/27/18 07:00 02/28/18 06:00 PT 12.5 SECONDS (9.4-12.5) 02/26/18 17:40 INR 1.09 02/26/18 17:40 APTT 24.7 Seconds (25.1-36.5) L 02/26/18 17:40 - Constitutional Appears: No Acute Distress - Head Exam Head Exam: NORMOCEPHALIC - Eye Exam Eye Exam: EOMI, Normal appearance - ENT Exam ENT Exam: Mucous Membranes Moist - Respiratory Exam Respiratory Exam: NORMAL BREATHING PATTERN - Cardiovascular Exam Cardiovascular Exam: +S1, +S2 - GI/Abdominal Exam GI & Abdominal Exam: Soft - Neurological Exam Neurological Exam: Alert, Awake, Oriented x3 - Psychiatric Exam Psychiatric exam: Normal Mood - Skin Skin Exam: Dry, Intact, Warm Assessment and Plan - Assessment and Plan (Free Text) Assessment: 52F with pneumothorax 2/2 rib fractures s/p fall Plan: -Chest tube to waterseal -F/u CXR -OOB to chair -Encourage ambulation -Lidocaine patch to affected area -Analgesics prn -Monitor chest tube output D/w Dr. Evan Morgan PGY3
[2018-02-28 07:12] LABS: % IRON SATURATION 7 % (20-55); TOTAL IRON BINDING CAPACITY 248 ug/dL (265-497)
[2018-02-28 07:21] LABS: BASO # 0.02 K/mm3 (0.0-2.0); BASO % 0.4 % (0.0-3.0); EOS # 0.2 (0.0-0.7); EOS % 2.8 % (1.5-5.0); GRAN # 3.24 (1.4-6.5); GRAN % 59.8 % (50.0-68.0); HEMOGLOBIN 11.6 g/dL (12.0-16.0); LYMPH # 1.5 (1.2-3.4); LYMPH % 27.2 % (22.0-35.0); MEAN CORPUSCULAR HGB CONC 32.2 g/dl (31.0-37.0); MEAN PLATELET VOLUME 11.3 fl (7.0-11.0); MONO # 0.5 (0.1-0.6); MONO % 9.8 % (1.0-6.0); RED CELL DISTRIBUTION WIDTH 14.9 % (11.5-14.5); WHITE BLOOD COUNT 5.4 10^3/uL (4.5-11.0)
[2018-02-28] MEDS: Arformoterol 15 mcg/2 ml Inh Sol IH SCH ×2 (08:03→19:37)
[2018-02-28] MEDS: Budesonide 0.5 mg/2 ml Inhal Susp UD IH SCH ×2 (08:03→19:37)
[2018-02-28] MEDS: Lidocaine 5% Patch TD SCH (09:34)
--- NOTE | 2018-02-28 09:54 | RAD ---
Date of service: 02/28/2018 HISTORY: s/p Chest Tube placement COMPARISON: 02/27/2018 FINDINGS: LUNGS: Right-sided chest tube. No pneumothorax. There is a small amount of subcutaneous emphysema along the right chest wall. Multiple rib fractures are seen PLEURA: No significant pleural effusion identified, no pneumothorax apparent. CARDIOVASCULAR: No aortic atherosclerotic calcification present. Normal cardiac size. No pulmonary vascular congestion. OSSEOUS STRUCTURES: No significant abnormalities. VISUALIZED UPPER ABDOMEN: Normal. OTHER FINDINGS: None. IMPRESSION: Right-sided chest tube. No pneumothorax. There is a small amount of subcutaneous emphysema along the right chest wall. Multiple rib fractures are seen
--- NOTE | 2018-02-28 11:09 | PN ---
DATE: 02/27/2018 SUBJECTIVE: The patient is 52-year-old lady. The patient is seen and examined at the bedside, looking comfortable, having a chest tube. [id number] was sitting on the bedside. No fever. No chills. No headache. No dizziness. No hematuria. No hematochezia. No swelling of the legs, but complaining of chest pain at the site of the tube. PHYSICAL EXAMINATION: VITAL SIGNS: Temperature 98, pulse 50, blood pressure 111/54, respiratory rate 20. HEENT: Head is normocephalic, atraumatic. Eyes PERRLA. Extraocular muscles intact. Conjunctivae clear. Nose patent. Mucous membrane moist. NECK: Supple. No carotid bruits. No thyromegaly. CHEST: Bilateral symmetrical. HEART; S1 and S2 positive. LUNGS: Having chest tube on the right side still draining. ABDOMEN: Soft. No organomegaly. EXTREMITIES: No edema. No cyanosis. NEUROLOGIC: The patient is awake, alert, moving all 4 extremities. No focal deficits. MEDICATIONS: Brovana, DuoNeb, heparin, Lidoderm, morphine, Neurontin, Percocet, Protonix, Pulmicort, Tylenol. LABORATORY DATA: White blood cell 5.6, hemoglobin 11.4, hematocrit 34.6, platelets 109. Sodium 137, potassium 4.0, BUN 27, creatinine 0.7. Glucose 99. AST 36. ASSESSMENT AND PLAN: The patient is a 52-year-old female with anemia, increased BUN, hyperglycemia, abnormal liver function test, history of chronic obstructive lung disease, right pneumothorax, pleural effusion, right rib fracture, history of major depression, insomnia, history of L2-L3 laminectomy and fusion, chronic pain syndrome, traumatic lung injury due to fall, status post right rib fracture, history of deep vein thrombosis, now has chest tube placed. Added inhaled bronchodilators. Protonix for gastrointestinal prophylaxis. Continue deep vein thrombosis prophylaxis and pain management. Surgical team is on the case for followup. The patient has pain in the chest, starting pain management. Discussion done with Dr. Castle. Dr. Francois Gordon's procedure notes reviewed by me. Repeat labs. We will followup. Scarlet Lopez MD MTDCandy
--- NOTE | 2018-02-28 11:37 | RAD ---
Date of service: 02/28/2018 HISTORY: chest tube to [id number] COMPARISON: Earlier same day FINDINGS: LUNGS: Right-sided chest tube. No pneumothorax. There is a small amount of right-sided subcutaneous emphysema PLEURA: No significant pleural effusion identified, no pneumothorax apparent. CARDIOVASCULAR: No aortic atherosclerotic calcification present. Normal cardiac size. No pulmonary vascular congestion. OSSEOUS STRUCTURES: No significant abnormalities. VISUALIZED UPPER ABDOMEN: Normal. OTHER FINDINGS: None. IMPRESSION: Right-sided chest tube. No pneumothorax. There is a small amount of right-sided subcutaneous emphysema
--- NOTE | 2018-02-28 12:13 | PN ---
DATE: 02/28/2018 PULMONARY PROGRESS NOTE REFERRING PHYSICIAN: Scarlet Lopez MD SUBJECTIVE: The patient was lying in bed. No acute distress. No overnight events reported. Denies cough, shortness of breath. The patient does report right rib pain. No headache, rhinitis, chest pain, abdominal pain, nausea, vomiting, diarrhea, leg pain or leg swelling reported. OBJECTIVE: GENERAL: No acute distress. VITAL SIGNS: Blood pressure 125/70, pulse 58, temperature 98.2, oxygen saturation 100% on nasal cannula. HEENT: Moist mucous membranes. NECK: Supple. No JVD. LUNGS: Decreased breath sounds right. Chest wall tenderness on right. CARDIOVASCULAR: S1 and S2 audible. ABDOMEN: Soft and nontender. No distention. No organomegaly. EXTREMITIES: No bilateral lower extremity edema. NEUROLOGIC: Awake, alert and verbal. Follows commands. MEDICATIONS: Reviewed. Tylenol 975 mg every 8 hours, DuoNeb 3 mL inhalation every 6 hours p.r.n., Brovana 15 mcg every 12 hours, Pulmicort 0.5 mg every 12 hours, Neurontin 300 mg twice a day, heparin 5000 units subcutaneously every 8 hours, Lidoderm patch topically to affected area, morphine 2 mg IV push every 4 hours p.r.n. severe pain, Percocet 5/325 mg one tab every 4 hours p.r.n. for moderate pain, Protonix 40 mg at bedtime. LABORATORY DATA: WBC 5.4, RBC 4, hemoglobin 1.6, hematocrit 36, and platelets 143. Sodium 138, potassium 4.0, chloride 106, carbon dioxide 26, anion gap 10, BUN 12, creatinine 0.6, GFR greater than 60, random glucose 92, calcium 8.9, phosphorus 4.1, magnesium 1.8, iron 19, TIBC 248, percent saturation 7, total bilirubin 0.5. AST 29, ALT 33, alkaline phosphatase 53, total protein 6.4, albumin 3.6, globulin 2.9, albumin and globulin ratio 1.2, triglycerides 82, cholesterol 123, LDL cholesterol direct 78, HDL cholesterol 47, TSH 0.75. Urinalysis; urine ketones 40, urine blood moderate, urine leukocyte esterase trace urine RBC 1-3, urine WBC 1-3, urine epithelial cells many. Chest x-ray shows right side chest tube, no pneumothorax, there is a small amount of subcutaneous emphysema along the right chest wall, multiple rib fractures are seen. IMPRESSION AND PLAN: Traumatic lung injury, right side pneumothorax, status post fall, right rib fractures, chronic lung disease, history of L2-L3 laminectomy and fusion, chronic pain syndrome, history of insomnia, history of deep venous thrombosis, history of depression, and chest tube in place to right side. Continue inhaled bronchodilators, gastric prophylaxis, deep venous thrombosis prophylaxis, pain management, chest tube care. Continue followup with surgical team. This patient was seen and examined with Dr. Castle. Discussed assessment and plan as described above. Thank you for this consult and we will follow with you. Ayad Green APN Eliazar Castle MD MTDCandy
[2018-02-28 12:54] LABS: FOLATE 6.7 ng/mL
[2018-02-28] MEDS: Oxycodone/Acetaminophen 5/325 mg Tab PO PRN (18:20)
[2018-02-28] MEDS: Pantoprazole 40 mg EC Tab PO SCH (21:23)
--- NOTE | 2018-03-01 01:42 | PN ---
DATE: 02/28/2018 SUBJECTIVE: Patient is seen and examined at bedside, looking comfortable, still complaining about pain, not in acute distress. No coughing or shortness of breath. Right rib pain is still there. No fever. No chills. No hematuria or hematochezia. No headache. No dizziness. PHYSICAL EXAMINATION: VITAL SIGNS: Blood pressure 125/70, pulse 58, temperature 98.2, oxygen saturation 100%. HEENT: Head is normocephalic and atraumatic. Eyes PERRLA. Extraocular muscles are intact. Conjunctivae clear. Nose patent. Mucous membranes moist. NECK: Supple. No carotid bruits. No JVD or thyromegaly. CHEST: Bilaterally symmetrical. HEART: S1 and S2 positive. LUNGS: Clear to auscultation. ABDOMEN: Soft. Bowel sounds present. No organomegaly. EXTREMITIES: No edema. No cyanosis. NEUROLOGIC: The patient is awake and alert, moving all four extremities. No focal deficits. MEDICATIONS: Tylenol, DuoNeb, Brovana, Pulmicort, Neurontin, Lidoderm, morphine, Percocet, Protonix. LABORATORY DATA: White blood cell 5.4, hemoglobin 1.6, hematocrit 36, platelets 143. Sodium 138, potassium 4, BUN 12, creatinine 0.6, magnesium 1.8, and TSH 0.75. ASSESSMENT AND PLAN: Alisha Link is a 52-year-old female with traumatic lung injury, right-sided pneumothorax, status post fall, right rib fracture, chronic lung disease, history of L2 and L3 laminectomy and fusion, chronic pain syndrome and history of insomnia, history of deep venous thrombosis, history of depression, chest tube placed in the right side. Continue inhaled bronchodilators, history of chronic pain syndrome, now getting pain management. Surgical team is on the case. [employer] Account Manager is on the case. Appreciated input. Repeat labs. We will follow. Scarlet Lopez MD MTDD
[2018-03-01] MEDS: Morphine 2 mg/ml ISec IVP PRN ×4 (01:50→23:06)
[2018-03-01] MEDS: Oxycodone/Acetaminophen 5/325 mg Tab PO PRN (05:23)
[2018-03-01] MEDS: Budesonide 0.5 mg/2 ml Inhal Susp UD IH SCH ×2 (08:04→19:55)
[2018-03-01] MEDS: Arformoterol 15 mcg/2 ml Inh Sol IH SCH ×2 (08:04→19:55)
--- NOTE | 2018-03-01 08:55 | CP.PCM.PN ---
Subjective - Date & Time of Evaluation Date of Evaluation: 03/01/18 Time of Evaluation: 07:00 - Subjective Subjective: Surgery progress note for Dr. Gordon Pt seen and examined at bedside this AM. No adverse events overnight. Patient states she has some pain in the right chest but no difficulty breathing. Discussed at length the plan to remove chest tube at bedside with patient and addressed all concerns and questions. Objective - Vital Signs/Intake and Output Vital Signs (last 24 hours): Temp Pulse Resp BP Pulse Ox 98.1 F 94 H 20 118/71 98 03/01/18 06:00 03/01/18 06:00 03/01/18 06:00 03/01/18 06:00 03/01/18 06:00 Intake and Output: 03/01/18 03/01/18 06:59 18:59 Intake Total 360 Output Total 20 Balance 340 - Medications Medications: Current Medications Albuterol/Ipratropium (Duoneb 3 Mg/0.5 Mg (3 Ml) Ud) 3 ml IH [id number] PRN PRN Reason: Shortness of Breath Arformoterol Tartrate (Brovana) 15 mcg IH [id number] [facility] Last Admin: 03/01/18 08:04 Dose: 15 mcg Budesonide (Pulmicort Respules) 0.5 mg IH [id number] [facility] Last Admin: 03/01/18 08:04 Dose: 0.5 mg Gabapentin (Neurontin) 300 mg PO BID [facility]; Protocol Last Admin: 02/28/18 17:10 Dose: 300 mg Heparin Sodium (Porcine) (Heparin) 5,000 units SC Q8 [facility]; Protocol Last Admin: 03/01/18 05:15 Dose: 5,000 units Ketorolac Tromethamine (Toradol) 30 mg IVP Q6H [facility] Stop: 03/01/18 21:46 Last Admin: 03/01/18 02:53 Dose: 30 mg Lidocaine (Lidoderm) 1 ea TD DAILY [facility] Last Admin: 02/28/18 09:34 Dose: 1 ea Lidocaine (Lidoderm) 1 ea TD DAILY [facility] Morphine Sulfate (Morphine) 2 mg IVP Q4H PRN PRN Reason: Pain, severe (8-10) Last Admin: 03/01/18 06:05 Dose: 2 mg Oxycodone/Acetaminophen (Percocet 5/325 Mg Tab) 1 tab PO Q4H PRN PRN Reason: Pain, moderate (4-7) Stop: 03/01/18 21:22 Last Admin: 03/01/18 05:23 Dose: 1 tab Pantoprazole Sodium (Protonix Ec Tab) 40 mg PO HS [facility] Last Admin: 02/28/18 21:23 Dose: 40 mg - Labs Labs: 02/28/18 06:00 02/28/18 06:00 PT 12.5 SECONDS (9.4-12.5) 02/26/18 17:40 INR 1.09 02/26/18 17:40 APTT 24.7 Seconds (25.1-36.5) L 02/26/18 17:40 - Constitutional Appears: Well, Non-toxic, No Acute Distress - Head Exam Head Exam: ATRAUMATIC, NORMOCEPHALIC - Eye Exam Eye Exam: Normal appearance. absent: Conjunctival injection, Scleral icterus - ENT Exam ENT Exam: Mucous Membranes Moist, Normal Oropharynx - Respiratory Exam Respiratory Exam: NORMAL BREATHING PATTERN. absent: Accessory Muscle Use, Respiratory Distress Additional comments: right chest with chest tube in place with minimal serosanguinous fluid output with no air leak upon forced expiration - Cardiovascular Exam Cardiovascular Exam: RRR - GI/Abdominal Exam GI & Abdominal Exam: absent: Distended - Extremities Exam Extremities Exam: absent: Calf Tenderness, Pedal Edema - Neurological Exam Neurological Exam: Alert, Awake, Oriented x3 - Psychiatric Exam Psychiatric exam: Normal Affect, Normal Mood - Skin Skin Exam: Dry, Normal Color, Warm Assessment and Plan - Assessment and Plan (Free Text) Assessment: 52F with R pneumothorax with rib fractures POD#2 s/p chest tube insertion--stable on water seal for 24 hours Plan: Plan to D/C chest tube today and repeat CXR afterwards Continue PRN pain medication Continue to encourage ambulation and incentive spirometer use Discussed with Dr. Evan Matthews, PGY2
--- NOTE | 2018-03-01 09:59 | RAD ---
Date of service: 03/01/2018 HISTORY: Chest tube to water seal COMPARISON: 02/28/2018 FINDINGS: LUNGS: Right-sided chest tube. Multiple rib fractures on the right. No pneumothorax PLEURA: No significant pleural effusion identified, no pneumothorax apparent. CARDIOVASCULAR: No aortic atherosclerotic calcification present. Normal cardiac size. No pulmonary vascular congestion. OSSEOUS STRUCTURES: No significant abnormalities. VISUALIZED UPPER ABDOMEN: Normal. OTHER FINDINGS: None. IMPRESSION: Right-sided chest tube. Multiple rib fractures on the right. No pneumothorax
[2018-03-01] MEDS: Lidocaine 5% Patch TD SCH ×2 (10:22→10:24)
--- NOTE | 2018-03-01 11:19 | PN ---
DATE: 03/01/2018 PULMONARY PROGRESS NOTE REFERRING PHYSICIAN: Sacrlet Lopez MD SUBJECTIVE: The patient is sitting up in bed. No acute distress. Reports right rib pain. Denies shortness of breath. Reports periodic coughing. No headache, rhinitis, chest pain, abdominal pain, nausea, vomiting, diarrhea, leg pain or leg swelling reported. OBJECTIVE: GENERAL: No acute distress. VITAL SIGNS: Blood pressure 118/71, pulse 94, temperature 98.1 and oxygen saturation 98%. HEENT: Moist mucous membranes. NECK: Supple. No JVD. RESPIRATORY: No breathing pattern, chest tube to right chest, serosanguineous drainage, no air leak noted. Diminished breath sounds right base. CARDIOVASCULAR: S1 and S2 audible. ABDOMEN: Soft and nontender. No distention. No organomegaly. EXTREMITIES: No bilateral lower extremity edema. NEUROLOGIC: Awake, alert and verbal. Follows commands. MEDICATIONS: Reviewed. DuoNeb 3 mL inhalation every 6 hours p.r.n., Brovana 15 mcg every 12 hours, Pulmicort 0.5 mg every 12 hours, Neurontin 300 mg twice a day, heparin 5000 units subcutaneously every 8 hours, Toradol 30 mg every 6 hours, Lidoderm patch topically daily, morphine 2 mg IV push every 4 hours p.r.n. for severe pain, Percocet 5/325 mg one tab every 4 hours p.r.n. for moderate pain and Protonix 40 mg at bedtime. LABORATORY DATA: Reviewed. No new labs since yesterday. DIAGNOSTIC DATA: Chest x-ray shows right-sided chest tube, multiple rib fractures on the right and no pneumothorax. IMPRESSION AND PLAN: Traumatic lung injury, right-sided pneumothorax with chest tube in place, status post fall, right rib fractures, chronic lung disease, history of L2-L3 laminectomy and fusion, chronic pain syndrome, history of insomnia, history of deep venous thrombosis and depression. Pulmonary point of view, continue inhaled bronchodilators, gastric prophylaxis, deep venous thrombosis prophylaxis, pain management, out of bed to chair, Dr. Matthews notes for Dr. Gordon appreciated. Chest tube, plan is to be discontinued today. Chest x-ray after removal. This patient was seen and examined with Dr. Castle. Discussed assessment and plan as described above. Thank you for this consult and we will follow with you. Ayad Green APN Eliazar Castle MD [facility] # [id number]
--- NOTE | 2018-03-01 14:37 | RAD ---
Date of service: 03/01/2018 HISTORY: re-evaluate R pneumothorax COMPARISON: 03/01/2018 FINDINGS: LUNGS: Right-sided chest tube has been removed. There is a very tiny right apical pneumothorax PLEURA: No significant pleural effusion identified, no pneumothorax apparent. CARDIOVASCULAR: No aortic atherosclerotic calcification present. Normal cardiac size. No pulmonary vascular congestion. OSSEOUS STRUCTURES: No significant abnormalities. VISUALIZED UPPER ABDOMEN: Normal. OTHER FINDINGS: None. IMPRESSION: Right-sided chest tube has been removed. There is a very tiny right apical pneumothorax
--- NOTE | 2018-03-01 14:55 | CP.PCM.PCO ---
Physician Communication Note - Physician Communication Note Physician Communication Note: Chest tube removed today, per cabinet worker reassess resp status next day,
[2018-03-01] MEDS: Pantoprazole 40 mg EC Tab PO SCH (21:00)
--- NOTE | 2018-03-01 22:40 | PN ---
DATE: 03/01/2018 SUBJECTIVE: The patient is a 52-year-old female. The patient was seen and examined at bedside on 03/01/2018, early in the morning still had chest tube, but I heard after that the chest tube was removed. No fever. No chills. No hematuria or hematochezia. No headache or dizziness. Still having pain at the chest tube site. No nausea or vomiting. Cough is better. Shortness of breath is better. PHYSICAL EXAMINATION: VITAL SIGNS: Blood pressure 120/70, pulse 94, temperature 98.1, oxygen saturation 98%. HEENT: Head is normocephalic and atraumatic. Eyes PERRLA. Extraocular muscles intact. Conjunctivae clear. Nose patent. Mucous membranes moist. NECK: Supple. No carotid bruits. No JVD or thyromegaly. CHEST: Has a tube on the right side. In the tube, serosanguineous drainage. No air leakage. LUNGS: Decreased breath sounds on the right base. Left side, good air entry. HEART: S1 and S2 positive. ABDOMEN: Soft and nontender. No organomegaly. EXTREMITIES: No edema. No cyanosis. NEUROLOGIC: The patient is awake and alert. Follows simple commands. MEDICATIONS: DuoNeb, Brovana, Pulmicort, Neurontin, Lidoderm patch, Percocet, Protonix. LABORATORY DATA: We do not have recent labs, but I have reviewed old labs. ASSESSMENT AND PLAN: Alisha Link is a nice 52-year-old female with traumatic lung injury, fracture of the ribs of the right side, right-sided pneumothorax with chest tube placement, status post fall, right chest pain, chronic obstructive pulmonary disease, history of L2-L3 laminectomy and fusion, chronic pain syndrome, history of insomnia, history of deep vein thrombosis, depression. Discussion done with the patient and the patient's nurse. Gastrointestinal and deep venous thrombosis prophylaxis. Repeat labs. The tube is removed by surgical team. Dr. Gordon's input is appreciated. We will follow up. Out of bed. Physical therapy. Scarlet Lopez MD MTDD
[2018-03-02] MEDS: Morphine 2 mg/ml ISec IVP PRN ×3 (03:42→13:45)
[2018-03-02 05:46] VITALS: O2SAT 96
--- NOTE | 2018-03-02 07:16 | CP.PCM.PN ---
Subjective - Date & Time of Evaluation Date of Evaluation: 03/02/18 Time of Evaluation: 06:30 - Subjective Subjective: Patient seen and examined. No acute events over night. Reports pain along rib fracture sites. Denies chest pain/shortness of breath. Objective - Vital Signs/Intake and Output Vital Signs (last 24 hours): Temp Pulse Resp BP Pulse Ox 97.8 F 54 L 20 106/64 96 03/02/18 05:44 03/02/18 05:44 03/02/18 05:44 03/02/18 05:44 03/02/18 05:44 Intake and Output: 03/02/18 03/02/18 06:59 18:59 Intake Total 1220 Balance 1220 - Medications Medications: Current Medications Albuterol/Ipratropium (Duoneb 3 Mg/0.5 Mg (3 Ml) Ud) 3 ml IH [id number] PRN PRN Reason: Shortness of Breath Arformoterol Tartrate (Brovana) 15 mcg IH [id number] DARIEN Last Admin: 03/01/18 19:55 Dose: 15 mcg Budesonide (Pulmicort Respules) 0.5 mg IH [id number] DARIEN Last Admin: 03/01/18 19:55 Dose: 0.5 mg Gabapentin (Neurontin) 300 mg PO BID DARIEN; Protocol Last Admin: 03/01/18 18:08 Dose: 300 mg Heparin Sodium (Porcine) (Heparin) 5,000 units SC Q8 DARIEN; Protocol Last Admin: 03/02/18 05:32 Dose: 5,000 units Lidocaine (Lidoderm) 1 ea TD DAILY DARIEN Last Admin: 03/01/18 10:22 Dose: 1 ea Lidocaine (Lidoderm) 1 ea TD DAILY DARIEN Last Admin: 03/01/18 10:24 Dose: 1 ea Morphine Sulfate (Morphine) 2 mg IVP Q4H PRN PRN Reason: Pain, severe (8-10) Last Admin: 03/02/18 03:42 Dose: 2 mg Pantoprazole Sodium (Protonix Ec Tab) 40 mg PO HS DARIEN Last Admin: 03/01/18 21:00 Dose: 40 mg - Labs Labs: 02/28/18 06:00 02/28/18 06:00 PT 12.5 SECONDS (9.4-12.5) 02/26/18 17:40 INR 1.09 02/26/18 17:40 APTT 24.7 Seconds (25.1-36.5) L 02/26/18 17:40 - Constitutional Appears: No Acute Distress - Head Exam Head Exam: NORMOCEPHALIC - Eye Exam Eye Exam: EOMI, Normal appearance Pupil Exam: NORMAL ACCOMODATION - ENT Exam ENT Exam: Mucous Membranes Moist - Respiratory Exam Respiratory Exam: Chest Wall Tenderness, NORMAL BREATHING PATTERN. absent: Accessory Muscle Use - Cardiovascular Exam Cardiovascular Exam: +S1, +S2 - GI/Abdominal Exam GI & Abdominal Exam: Soft - Neurological Exam Neurological Exam: Alert, Awake, Oriented x3 - Psychiatric Exam Psychiatric exam: Normal Mood - Skin Skin Exam: Dry, Intact, Warm Assessment and Plan - Assessment and Plan (Free Text) Assessment: 52F w/ pneumothorax 2/2 rib fractures - resolved Plan: CXR- pneumothorax resolved Apply lidocaine patches to affected area Continue PRN pain medication Encourage ambulation DVT ppx No further intervention required from surgical standpoint Further recs per Dr. Evan Morgan PGY3
[2018-03-02 08:15] LABS: BLOOD UREA NITROGEN 13 mg/dL (7-21); CALCIUM 8.8 mg/dL (8.4-10.5); GFR NON-AFRICAN AMERICAN > 60
[2018-03-02 08:20] LABS: HEMOGLOBIN 10.9 g/dL (12.0-16.0); MEAN CELL VOLUME 88.9 fl (80.0-105.0); MEAN CORPUSCULAR HEMOGLOBIN 28.8 pg (25.0-35.0); MEAN CORPUSCULAR HGB CONC 32.3 g/dl (31.0-37.0); MEAN PLATELET VOLUME 9.9 fl (7.0-11.0); RBC 3.79 10^6/uL (3.5-6.1); WHITE BLOOD COUNT 5.7 10^3/uL (4.5-11.0)
[2018-03-02] MEDS: Arformoterol 15 mcg/2 ml Inh Sol IH SCH ×2 (09:07→11:47)
[2018-03-02] MEDS: Budesonide 0.5 mg/2 ml Inhal Susp UD IH SCH ×2 (09:07→11:47)
[2018-03-02] MEDS: Lidocaine 5% Patch TD SCH ×2 (09:10)
--- NOTE | 2018-03-02 10:28 | RAD ---
Date of service: 03/02/2018 HISTORY: s/p chest tube removal COMPARISON: Chest radiograph dated 03/01/2018. FINDINGS: LUNGS: Basilar atelectasis. PLEURA: Stable tiny right apical pneumothorax. CARDIOVASCULAR: No aortic atherosclerotic calcification present. Normal cardiac size. No pulmonary vascular congestion. OSSEOUS STRUCTURES: Unchanged. VISUALIZED UPPER ABDOMEN: Normal. OTHER FINDINGS: Similar right chest wall subcutaneous emphysema. IMPRESSION: Stable tiny right apical pneumothorax.
[2018-03-02 12:05] VITALS: BP 100/62; RESP 21; TEMP 98.5
--- NOTE | 2018-03-02 14:46 | PN ---
DATE: 03/02/2018 PULMONARY PROGRESS NOTE REFERRING PHYSICIAN: Dr. Lopez. SUBJECTIVE: Patient is in room sitting on chair at bedside, no acute distress. Reports having right rib pain. No headache, rhinitis, chest pain, abdominal pain, nausea, vomiting, diarrhea, leg pain and leg swelling reported. Patient denies shortness of breath. No cough. OBJECTIVE: GENERAL: No acute distress. VITAL SIGNS: Blood pressure 106/64, pulse 54, temperature 97.8, and oxygen saturation 96 on room air. HEENT: Moist mucous membranes. NECK: Supple. No JVD. RESPIRATORY: Lungs clear bilaterally. Breath sounds noted on right base. CARDIOVASCULAR: S1 and S2, audible. ABDOMEN: Soft and nontender. No distention. No organomegaly. EXTREMITIES: No bilateral lower extremity edema. NEUROLOGIC: Awake, alert, follows commands. MEDICATIONS: Reviewed. DuoNeb 3 mL inhalation every 6 hours p.r.n., Brovana 15 mcg every 12 hours, Pulmicort 0.5 mg every 12 hours, Neurontin 300 mg twice a day, heparin 5000 units subcutaneously every 8 hours, Lidoderm patch topically to affected area, morphine 2 mg IV push every 4 hours p.r.n., Protonix 40 mg at bedtime. LABORATORY DATA: Reviewed. WBC 5.7, RBC 3.79, hemoglobin 10, hematocrit 33.7, and platelets 182. Sodium 138, potassium 4, chloride 107, carbon dioxide 27, anion gap 9, BUN 13, creatinine 0.5. GFR greater than 60, random glucose 96, calcium 8.8. Chest x-ray shows stable tiny right apical pneumothorax. IMPRESSION AND PLAN: Traumatic lung injury, right side pneumothorax status post chest tube, status post fall, right rib fractures, chronic lung disease, history of L2-L3 laminectomy and fusion, chronic pain syndrome, history of insomnia, history of deep venous thrombosis and depression.Pulmonary point of view, continue inhaled bronchodilators, gastric prophylaxis. Deep venous thrombosis prophylaxis. Pain management, out of bed to chair. Patient should have followup chest x-ray to follow up on pneumothorax. This patient was seen and examined with Dr. Castle. Discussed assessment and plan as described above. Thank you for this consult. We will follow with you. Ayad Green APN Eliazar Castle MD [facility] # [id number] [place]
[2018-03-02 15:13] VITALS: PULSE 88
--- NOTE | 2018-03-03 01:01 | PN ---
HISTORY OF PRESENT ILLNESS: The patient was admitted with rib fracture, pneumothorax, has 3 rib fractures resulted in pneumothorax, treated with a chest tube by Dr. Gordon. The patient did well. Resolved pneumothorax. Chest tube was removed and the patient was stable with a small tiny residual right apical pneumothorax and was okay. Discharged by Surgery and Pulmonary. The patient complained of right-sided pain and she was given Percocet and will be followed up as outpatient by Dr. Lopez. PHYSICAL EXAMINATION: VITAL SIGNS: On the day of discharge, temperature is 97.8, heart rate 54, blood pressure is 106/64, respirations 20, saturation is 96% on room air. HEAD AND NECK: Normal. No JVD. No thyromegaly. CHEST: Clear bilaterally. Normal breath sounds. Right sided tender area in the ribs area on the right side in the middle the chest. CARDIAC: First sounds and second sounds are normal. ABDOMEN: Soft. EXTREMITIES: No edema. NEUROLOGIC: Normal. LABORATORY DATA: White count 5.7, hemoglobin 10.9, hematocrit 33.7, and platelets 182. Chemistry, sodium 138, potassium 4, chloride 107, bicarb 27, BUN 13, creatinine 0.5. Glucose 96. Calcium 8.8. Hemoglobin A1c 5.4. She has low iron studies. IMPRESSION AND PLAN: 1. Status post pneumothorax and chest tube removal. 2. Chest wall pain. 3. Anemia, iron-deficiency. We will discharge the patient, gave her Percocet for 3 to 4 days and ibuprofen, Protonix p.r.n. for pain. Follow up with Dr. Lopez. Drink more water. Use Colace if any constipation develops. The patient is advised to see Dr. Lopez in the coming week. Kendall Mello MD
== END 2018-03-02 16:58 | disposition home or self-care (01) | DRG 200 ==
LOC: ED 16:18 → ERH 17:23 → 2RNO 20:24
PROVIDERS: ADMIT Internal Medicine; ATTEND Internal Medicine
PROC: 0W9930Z Drainage of Right Pleural Cavity with Drainage Device, Percutaneous Approach (ICD-10-PCS; principal; 2018-02-27)
DX: S27.0XXA Traumatic pneumothorax, initial encounter (principal); S22.41XA Multiple fractures of ribs, right side, initial encounter for closed fracture; J98.11 Atelectasis; J90 Pleural effusion, not elsewhere classified; F17.200 Nicotine dependence, unspecified, uncomplicated; G89.29 Other chronic pain; M54.9 Dorsalgia, unspecified; F12.90 Cannabis use, unspecified, uncomplicated; G89.4 Chronic pain syndrome; D64.9 Anemia, unspecified; J44.9 Chronic obstructive pulmonary disease, unspecified; D50.9 Iron deficiency anemia, unspecified; F32.9 Major depressive disorder, single episode, unspecified; W18.30XA Fall on same level, unspecified, initial encounter; Y92.091 Bathroom in other non-institutional residence as the place of occurrence of the external cause; Z86.718 Personal history of other venous thrombosis and embolism; Y93.E1 Activity, personal bathing and showering